=== PATIENT | female | born 1930 | race African-American/Black ===

== ENCOUNTER 2017-01-18 09:00 | Inpatient (IN) ==
[2017-01-18] MEDS ORDERED: DEXTROSE 50% 25 GM/50 ML VIAL IV PRN (09:42)
--- NOTE | 2017-01-18 09:42 | Cardiothoracic History & Phys ---
History of Present Illness Chief complaint: Shortness of breath History of present illness: Ms. Freitas is a 86 year old female who presented to [facility] with symptoms of increasing shortness of breath. She underwent evaluation by cardiology and cardiac catheterization and echocardiogram were recommended and performed. Cardiac echo suggested severe aortic stenosis and this was confirmed by cardiac catheterization which also showed essentially normal coronary arteries. Patient is referred for aortic valve replacement. Past medical history: Patient has hypertension hyperlipidemia type 2 diabetes and anemia. Past surgical history is negative patient is allergic to penicillin the family history is notable because of heart disease and a grand father. Patient is a non-smoker and nondrinker and review of systems is negative as far as the present illness is concerned. Physical examination patient is a well-developed well-nourished - [place] female in no acute distress. Termination of head eyes ears nose and throat show the pupils are equal and react to light and extraocular motions are intact. Oropharynx is benign. Examination of the neck showed bilateral transmitted bruits but there are no masses and there is no thyromegaly. Examination of the chest is clear to percussion and auscultation. Examination the heart shows a regular sinus rhythm and there is a loud systolic murmur heard best along left sternal border radiating to the neck. Examination of the abdomen shows no masses or organomegaly and there is no tenderness. Examination extremities shows no cyanosis or edema. Neurological examination is grossly within normal limits. Assessment: Aortic stenosis. Plan: Aortic valve replacement.
[2017-01-19] MEDS ORDERED: DEXTROSE 50% 25 GM/50 ML VIAL IV PRN (18:12)
[2017-01-19] MEDS ORDERED: GLUCAGON 1 MG VIAL IM PRN (18:41)
[2017-01-19] MEDS: BUMETANIDE 1 MG TABLET PO SCH (18:49)
[2017-01-19 18:51] LABS: Albumin 2.8 G/DL (3.4-5.0); Bilirubin,Total 0.7 MG/DL (0.2-1.0); Calcium 8.8 MG/DL (8.5-10.1); Osmolality,Calculated 290.8 MOS/KG (273-304); Potassium 4.4 MMOL/L (3.5-5.1); Total Protein 6.1 G/DL (6.4-8.3)
[2017-01-19] MEDS: CHLORHEXIDINE 0.12% ORAL RINSE 60 ML BOTTLE SWISH/SPIT SCH (20:51)
--- NOTE | 2017-01-19 23:04 | XRay Report ---
Exam: XR chest 2V Indication: Coronary artery disease Comparison study: None Findings: Cardiac silhouette is mildly enlarged. Mediastinal contours appear within normal limits. There is perihilar interstitial prominence, which is nonspecific but may represent underlying scarring. There is no focal consolidation or pleural effusion. Impression: Probable interstitial scarring and perihilar atelectasis. No definite focal consolidation. Mild cardiomegaly is suggested. PROCEDURE INTERPRETED AT [facility] DEPARTMENT OF RADIOLOGY Final Report Signed by: Lavelle López
[2017-01-20] MEDS: CHLORHEXIDINE 0.12% ORAL RINSE 60 ML BOTTLE SWISH/SPIT SCH ×2 (08:42→20:28)
[2017-01-20] MEDS: BUMETANIDE 1 MG TABLET PO SCH ×2 (08:43→15:55)
[2017-01-20] MEDS: DILTIAZEM CD 240 MG CAPSULE PO SCH (08:43)
[2017-01-20] MEDS: CHLORHEXIDINE 4% SOLN 118 ML BOTTLE TOP SCH ×2 (08:44→20:29)
--- NOTE | 2017-01-20 09:20 | Cardiothoracic Progress Note ---
Cardiothoracic Subjective Interval history: Patient is pain-free and in good spirits and ready for aortic valve replacement in the morning. Exam (Progress Note) - Constitutional Vitals: Period Temp Pulse Resp BP Sys/Link Pulse Ox Last 24 Hr 96 F-100 F 74-83 16-20 135-186/61-102 96-97 Result/EKG - Labs CBC & BMP: 01/19/17 17:56 Labs: Laboratory Results - last 24 hr 01/19/17 01/20/17 01/20/17 17:56 04:51 Unknown Sodium 144 Potassium 4.4 Chloride 111 H Carbon Dioxide 26 Anion Gap 11.4 BUN 21 H Creatinine 1.60 H GFR Calculation 38 BUN/Creatinine Ratio 13.00 Glucose 142 H Calculated Osmolality 290.8 Calcium 8.8 Total Bilirubin 0.70 AST 21 ALT 21 Alkaline Phosphatase 74 Total Protein 6.1 L Albumin 2.8 L Globulin 3.3 Albumin/Globulin Ratio 0.8 L Blood Type O POSITIVE O POSITIVE Antibody Screen Negative Crossmatch See Detail Quality Measures - VTE Contraindication to Pharmacological VTE Prophylaxis: High Risk of Bleeding
[2017-01-20] MEDS ORDERED: CEFUROXIME INJ 1,500 MG in SODIUM CHLORIDE 0.9% 100 ML IV ONE (09:42)
--- NOTE | 2017-01-20 11:29 | Hospitalist Consult Note ---
Assessment and Plan (1) DM2 (diabetes mellitus, type 2) Status: Chronic Assessment and plan: The patient is admitted to the hospital for aortic valve replacement. The patient has diabetes mellitus type 2 well controlled on metformin. Metformin will be held now and the patient will be treated in the postoperative phase with insulin infusion and then insulin subcutaneously once she is extubated. Current Visit: Yes Qualifiers: Diabetes mellitus complication status: with kidney complications Diabetes mellitus complication detail: with chronic kidney disease Chronic kidney disease stage: stage 3 (moderate) (2) CKD (chronic kidney disease) stage 3, GFR 30-59 ml/min Status: Chronic Current Visit: Yes (3) Aortic stenosis Status: Chronic Current Visit: Yes Qualifiers: Cardiac valve disease etiology: etiology unspecified Qualified Code(s): I35.0 - Nonrheumatic aortic (valve) stenosis History of Present Illness - Data of Consult Patient: new to practice Consult date: 01/20/17 Requesting Physician: Jon Reyna - Consult Narrative Reason for consult: Diabetes management History of present illness: Ms. Freitas is a 86 year old female who has transferred from [facility] for aortic valve replacement to be performed tomorrow by Dr. Reyna. The patient has diabetes mellitus type 2 and good control on metformin. Metformin is currently being held for preoperative status and fasting blood sugar was 124. CC: Jon Reyna MD - Home Medications and Allergies Home Medications: Home Medications Medication Instructions Recorded Confirmed Type Atorvastatin [Lipitor] 20 mg PO DAILY 01/19/17 01/19/17 History Bumetanide 2 mg PO DAILY 01/19/17 01/19/17 History Ferrous Sulfate 1 tablet PO DAILY 01/19/17 01/19/17 History dilTIAZem HCl [Cartia XT] 240 mg PO DAILY 01/19/17 01/19/17 History metFORMIN [Glucophage] 500 mg PO BID W/MEALS 01/19/17 01/19/17 History Allergies/Adverse Reactions: Allergies Allergy/AdvReac Type Severity Reaction Status Date / Time Penicillins Allergy Severe Difficulty Verified 01/19/17 17:47 Breathing Medical,Surgical,& Family Hx - Medical History Cardio: History of: Valvular Heart Disease HEENT: History of: Dental Problems (6 TEETH EXTRACTED 01/18/17) Endocrine: History of: Diabetes Mellitus (NIDDM), Dyslipidemia Respiratory: No history of: Respiratory Problems Musculoskeletal: No history of: Amputation Hematology: History of: Anemia - Surgical History Cardiac Surgeries: Sugical HX of: Cardiac Catheterization Thoracic Surgeries: Patient denies;: Organ Transplant, Lobectomy Neurologic Surgeries: Patient denies: Neurologic Surgery Abdominal Surgeries: Patient denies: Abdominal Surgery - Social History Smoking Status: Never smoker Frequency of Alcohol Use: None Type of Drug Use: None Marital Status: Single Lives With:: Children Functional capacity: independent ambulation 12 point system: reviewed and no additional remarkable complaints except as stated Exam - Constitutional Vitals: Period Temp Pulse Resp BP Sys/Link Pulse Ox Last 24 Hr 96 F-100 F 71-83 16-20 126-186/58-102 96-98 Exam: Constitutional System: No distress. No tremulousness. Head: Normocephalic, atraumatic. Ears, Nose and Throat System: No evidence of Otitis or Mastoiditis. No epistaxis or discharge Eyes System: Pupils equal, round, and reactive. Extraocular muscles intact. Neck: Supple, without adenopathy, No jugular venous distention. No thyromegaly , neck mass, or prior surgery apparent. Respiratory System: Chest clear to auscultation. Cardiovascular System: Heart with regular rate and rhythm. Systolic murmur. GI System: Abdomen soft, nontender. Normo active bowel sounds present. Musculoskeletal System: limbs with trace pedal edema. Full distal pulses. Neurological System: No discernable sensory deficit. No aphasia Psychiatric System: Conversation is rational Results - Labs CBC & BMP: 01/19/17 17:56 Lab Results: I have reviewed the past 24 hour labs Quality Measures - VTE Contraindication to Pharmacological VTE Prophylaxis: High Risk of Bleeding
[2017-01-20] MEDS ORDERED: oxyCODONE/ACETAMINOPHEN 5-325 MG TABLET PO PRN (15:35)
[2017-01-20] MEDS: ACETAMINOPHEN 325 MG TABLET PO PRN ×2 (15:56→22:43)
[2017-01-21 02:45] LABS: ABG HCO3 25.6 MMOL/L (20-26); ABG Oxygen Saturation 96.2 % (95-100); ABG PO2 86.9 MM HG (80-95); ABG TCO2 26.7 MMOL/L (23-27); Allen Test Positive; Pt O2 Delivery Device Room Air
[2017-01-21] MEDS ORDERED: VANCOMYCIN 1,000 MG VIAL ONE (04:34)
[2017-01-21] MEDS: CHLORHEXIDINE 4% SOLN 118 ML BOTTLE TOP SCH (05:15)
[2017-01-21] MEDS ORDERED: LORazepam 1 MG TABLET PO ONE (05:30)
[2017-01-21] MEDS ORDERED: VANCOMYCIN INJ 1,000 MG in SODIUM CHLORIDE 0.9% 250 ML IV ONE (05:30)
[2017-01-21] MEDS ORDERED: FAMOTIDINE 20 MG TABLET PO ONE (05:30)
[2017-01-21] MEDS ORDERED: SODIUM CHLORIDE 0.9% 1,000 ML IV SCH (06:00)
[2017-01-21] MEDS ORDERED: VECURONIUM 10 MG VIAL IV ONE (06:48)
[2017-01-21] MEDS ORDERED: AMINOCAPROIC ACID 5,000 MG/20 ML VIAL IV ONE (06:48)
[2017-01-21] MEDS ORDERED: HEPARIN/NACL 0.9% 2 UNITS/ML 500 ML IV ONE ×2 (06:48→10:42)
[2017-01-21] MEDS ORDERED: LIDOCAINE 2% 5 ML VIAL ONE (06:48)
[2017-01-21] MEDS ORDERED: NITROGLYCERIN 50 MG/250 ML BOTTLE IV ONE (06:48)
[2017-01-21] MEDS ORDERED: PHENYLEPHRINE 20 MG/250 ML PREMIX IV ONE (06:48)
[2017-01-21 07:31] LABS: ABG Base Excess -0.5 MMOL/L (-2.5-2.5); ABG HCO3 24.1 MMOL/L (20-26); ABG PH 7.504 (7.35-7.45); ABG TCO2 20.5 MMOL/L (23-27); Glucose Heart Surgery 128 MG/DL (74-106); Hematocrit Heart Surgery 25.2 PERCENT (37-47); Hemoglobin Heart Surgery 8.1 G/DL (12.0-16.0); Ionized Calcium Arterial 1.18 MMOL/L (1.21-1.46); PH Patient Temp Arterial 7.504; Patient Temperature 37 CELCIUS; Potassium Heart/CVR 3.8 MMOL/L (3.5-5.1); Sodium Heart/CVR 142 MMOL/L (135-145)
[2017-01-21] MEDS ORDERED: NITROPRUSSIDE 50 MG/2 ML VIAL ONE (08:07)
[2017-01-21] MEDS ORDERED: PHENYLEPHRINE DRIP 40 MG/250 ML PREMIX IV ONE (08:07)
[2017-01-21] MEDS ORDERED: POTASSIUM CHLORIDE RIDER 100 ML IV ONE (08:07)
[2017-01-21] MEDS ORDERED: CALCIUM CHLORIDE 1,000 MG/10 ML SYRINGE IV ONE (08:07)
[2017-01-21 08:08] LABS: Apearance,Urine Slightly Hazy (Clear); Bacteria,Urine Few /HPF (Few); Bilirubin,Urine Negative (Negative); Blood, Urine Moderate mg/dL (Negative); Glucose,Urine (UA) Negative (Negative); Ketones,Urine Negative (Negative); Mucus,Urine Occasional /LPF (Occasional); Nitrite,Urine Positive (Negative); Protein,Urine Negative; RBC,Urine 4 /HPF (0-4); Squamous Epithelial Cell,Urine Occasional /HPF (0-10); Urine Color Yellow (Yellow); Urine Urobilinogen < 2.0 EU/DL (0.2-1.0); WBC,Urine 29 /HPF (0-6)
[2017-01-21 08:17] LABS: VBG Base Excess -1.5 MEQ/L (0-4); VBG Oxygen Saturation 85.6 %; VBG PCO2 36.2 MMHG (41-51); VBG PH 7.409; VBG PO2 50.5 MMHG (17-40)
[2017-01-21 08:41] LABS: Potassium Heart/CVR 4.2 MMOL/L (3.5-5.1); VBG Base Excess -1.5 MEQ/L (0-4); VBG Oxygen Saturation 85.6 %; VBG PCO2 36.2 MMHG (41-51); VBG PH 7.409; VBG PO2 50.5 MMHG (17-40)
[2017-01-21 08:42] LABS: Hematocrit Heart Surgery 21.7 PERCENT (37-47); Hemoglobin Heart Surgery 6.9 G/DL (12.0-16.0); PCO2 Patient Temp Venous 32.8 MM HG; PH Patient Temp Venous 7.438; PO2 Patient Temp Venous 44.4 MM HG
[2017-01-21 08:45] LABS: Hematocrit Heart Surgery 21.6 PERCENT (37-47); Hemoglobin Heart Surgery 6.9 G/DL (12.0-16.0); PCO2 Patient Temp Venous 28.3 MM HG; PH Patient Temp Venous 7.514; PO2 Patient Temp Venous 33.8 MM HG; Potassium Heart/CVR 4.2 MMOL/L (3.5-5.1); VBG Base Excess 0.4 MEQ/L (0-4); VBG HCO3 24.6 MEQ/L (24-28); VBG Oxygen Saturation 82.2 %; VBG PCO2 34.4 MMHG (41-51); VBG PH 7.454; VBG PO2 44.6 MMHG (17-40)
[2017-01-21] MEDS ORDERED: ATORVASTATIN 20 MG TABLET PO SCH (09:00)
[2017-01-21] MEDS ORDERED: INSULIN REGULAR DRIP 100 ML IV ONE (09:24)
[2017-01-21] MEDS ORDERED: LIDOCAINE 100 MG/5 ML SYRINGE ONE (09:24)
[2017-01-21] MEDS ORDERED: EPINEPHrine 1 MG/10 ML SYRINGE ONE (09:24)
[2017-01-21] MEDS ORDERED: PHENYLEPHRINE DRIP 20 MG/250 ML PREMIX IV ONE (09:36)
[2017-01-21] MEDS ORDERED: DEXTROSE 5% KCL 20 MEQ 40 MEQ/2,000 ML BAG IV ONE (09:36)
[2017-01-21] MEDS ORDERED: PROTAMINE SULFATE 250 MG/25 ML VIAL IV ONE (09:37)
[2017-01-21] MEDS ORDERED: SODIUM BICARBONATE 50 MEQ/50 ML SYRINGE IV ONE (09:37)
[2017-01-21] MEDS ORDERED: ALBUMIN 25% 25 GM/100 ML VIAL IV ONE (09:37)
[2017-01-21] MEDS ORDERED: MAGNESIUM SULFATE 1 GM/2 ML VIAL ONE (09:38)
[2017-01-21] MEDS ORDERED: MANNITOL 12.5 GM/50 ML VIAL IV ONE (09:38)
[2017-01-21] MEDS ORDERED: methylPREDNISolone SOD SUC 1,000 MG/8 ML VIAL ONE (09:38)
[2017-01-21] MEDS ORDERED: FUROSEMIDE 20 MG/2 ML VIAL ONE (09:38)
[2017-01-21] MEDS ORDERED: HEPARIN 10,000 UNIT/10 ML VIAL ONE (09:38)
[2017-01-21 09:47] LABS: ABG Base Excess -2.7 MMOL/L (-2.5-2.5); ABG HCO3 22.1 MMOL/L (20-26); ABG PCO2 33.6 MM HG (35-48); ABG PH 7.411 (7.35-7.45); ABG TCO2 19.9 MMOL/L (23-27); Glucose Heart Surgery 221 MG/DL (74-106); Hematocrit Heart Surgery 25.1 PERCENT (37-47); Hemoglobin Heart Surgery 8.1 G/DL (12.0-16.0); Ionized Calcium Arterial 1.14 MMOL/L (1.21-1.46); PCO2 Patient Temp Arterial 33.6 MMHG; PH Patient Temp Arterial 7.411; Patient Temperature 37 CELCIUS; Potassium Heart/CVR 3.9 MMOL/L (3.5-5.1); Sodium Heart/CVR 138 MMOL/L (135-145)
[2017-01-21] MEDS ORDERED: ONDANSETRON 4 MG/2 ML VIAL IV PRN (10:20)
[2017-01-21] MEDS ORDERED: POTASSIUM CHLORIDE RIDER 10 MEQ in PREMIX 1 EACH IV PRN (10:20)
[2017-01-21] MEDS ORDERED: INSULIN REGULAR 100 UNIT/ML IV ONE (10:20)
[2017-01-21] MEDS ORDERED: LACTATED RINGERS 250 ML IV PRN (10:20)
[2017-01-21] MEDS ORDERED: ACETAMINOPHEN 650 MG SUPP RECTAL PRN (10:20)
[2017-01-21] MEDS ORDERED: VECURONIUM 10 MG VIAL IV PRN ×2 (10:20)
[2017-01-21] MEDS ORDERED: MORPHINE 10 MG/1 ML VIAL IV PRN (10:20)
[2017-01-21] MEDS ORDERED: PHENYLEPHRINE DRIP 40 MG/250 ML PREMIX IV PRN (10:20)
[2017-01-21] MEDS ORDERED: MIDAZOLAM 10 MG/2 ML VIAL IV PRN (10:20)
[2017-01-21] MEDS ORDERED: NITROPRUSSIDE 100 MG in DEXTROSE 5% 250 ML IV PRN (10:20)
[2017-01-21] MEDS ORDERED: CALCIUM CHLORIDE 1,000 MG/10 ML SYRINGE IV PRN (10:20)
[2017-01-21] MEDS ORDERED: MAGNESIUM SULF RIDER 4 GM in PREMIX 1 EACH IV PRN (10:20)
[2017-01-21] MEDS ORDERED: MORPHINE 2 MG/1 ML SYRINGE IV PRN (10:20)
[2017-01-21] MEDS ORDERED: INSULIN REGULAR 100 UNIT/ML IV PRN (10:20)
[2017-01-21] MEDS ORDERED: DEXTROSE 50% 25 GM/50 ML VIAL IV PRN ×2 (10:20)
--- NOTE | 2017-01-21 10:26 | Operative Note ---
Date of procedure: 01/21/17 Pre-op diagnosis: Aortic stenosis Post-op diagnosis: same Procedure: Procedure: Aortic valve replacement with a 19 mm pericardial prosthesis. Findings: Patient is an 86-year-old lady who presented to [facility] with symptoms of increasing shortness of breath. Cardiac catheterization and echocardiogram both revealed evidence of severe aortic stenosis and the patient was referred for aortic valve replacement. At the time of surgery left ventricular function was noted to be normal and a severely calcified aortic valve was removed and replaced with a 19 mm pericardial prosthesis. Patient tolerated the procedure well and was returned to recovery in satisfactory condition. Procedure: Patient brought to the operating room placed on the operating table in the supine position. After satisfactory induction of general anesthesia the chest abdomen and legs were prepped and draped in sterile fashion. A sternotomy incision was made and the sternum was divided and the heart suspended in a pericardial cradle. Patient was prepared for cardiopulmonary bypass with systemic heparinization and cannulation of the ascending aorta and right atrium. Cardiopulmonary bypass was begun and the aorta was crossclamped and the heart arrested with cardioplegia solution injected into the aortic root. Heart was protected during period of crossclamping with topical saline slush. The aorta was opened with a transverse aortotomy in the aortic valve was inspected and was found to be severely stenotic and calcified. The [place] aortic valve was removed and the aortic annulus rimmed with horizontal mattress sutures of 3-0 Ethibond. These were passed through the sewing ring of a 19 mm pericardial prosthesis which was lowered and tied into place. The aorta was closed with 3-0 Prolene. The heart was de-aired and and the aortic cross-clamp was removed reestablishing cardiac action. Patient was gradually weaned from cardiopulmonary bypass without difficulty and heparin effect reversed with protamine and decannulation carried out in the usual fashion. Defects in the ascending aorta and right atrium closed with 3-0 Prolene. The operative field was inspected for hemostasis and this was considered adequate the incision was closed with interrupted stainless steel wire and the sternum and 0 Monopril in the presternal fascia. The skin was closed with running subcuticular Monocryl. 2 chest tubes were left in the anterior mediastinum and brought out through separate stab incisions. Sterile dressings were applied the patient was returned to recovery in satisfactory condition. Anesthesia: GETA Surgeon / Physician: Jon Reyna Estimated blood loss: other (Unable to determine because of cardiopulmonary bypass) Condition: stable Disposition: ICU Results - Labs CBC & BMP: 01/21/17 09:41 01/19/17 17:56 Discharge Plan - Discharge Medications No Action Ferrous Sulfate 1 tablet PO DAILY dilTIAZem HCl [Cartia XT] 240 mg PO DAILY Bumetanide 2 mg PO DAILY Atorvastatin [Lipitor] 20 mg PO DAILY metFORMIN [Glucophage] 500 mg PO BID W/MEALS - Follow Up or Referral - Forms/Instructions
[2017-01-21] MEDS ORDERED: PROTAMINE SULFATE 50 MG/5 ML VIAL IV ONE ×2 (10:28→10:30)
[2017-01-21] MEDS: LACTATED RINGERS 1,000 ML IV PRN ×3 (10:30→15:43)
[2017-01-21] MEDS: SODIUM CHLORIDE 0.45% 1,000 ML IV SCH ×2 (10:30→11:58)
[2017-01-21] MEDS ORDERED: ePHEDrine 50 MG/ML AMP ONE (10:34)
[2017-01-21] MEDS ORDERED: MIDAZOLAM 10 MG/2 ML VIAL ONE (10:34)
[2017-01-21] MEDS ORDERED: SUFentanil 250 MCG/5 ML AMP ONE (10:34)
[2017-01-21 10:46] LABS: ABG Base Excess -3.3 MMOL/L (-2.5-2.5); ABG HCO3 21.7 MMOL/L (20-26); ABG PCO2 28.1 MM HG (35-48); ABG PH 7.454 (7.35-7.45); ABG TCO2 18.1 MMOL/L (23-27); Eosinophils # 0.1 10*3/uL (0.0-0.87); Eosinophils % 0.8 % (0.00-10.9); Glucose Heart Surgery 158 MG/DL (74-106); Hematocrit 26.3 VOL% (35.7-47.0); Hematocrit Heart Surgery 28.3 PERCENT (37-47); Hemoglobin 8.8 GM/DL (12.0-16.0); Hemoglobin Heart Surgery 9.1 G/DL (12.0-16.0); Immature Granulocytes % 0.5 %; Immature Granulocytes Absolute 0.03 #; Lymphocytes # 1.1 10*3/uL (1.4-4.0); Lymphocytes % 17.7 % (21.3-54.2); Mean Corpuscular HGB Conc 33.5 GM/DL (32-36); Mean Corpuscular Hemoglobin 30 PG (27-34); Mean Corpuscular Volume 89.2 FL (87-102); Mean Platelet Volume 10.6 FL (9.6-12.0); Monocytes # 0.4 10*3/uL (0.11-0.8); Monocytes % 6.7 % (1.7-12.7); Neutrophils # 4.6 10*3/uL (1.4-7.4); Neutrophils % 74.3 % (38.7-73.9); Platelet Count 91 T/CUMM (130-400); Potassium Heart/CVR 3.7 MMOL/L (3.5-5.1); Red Blood Count 2.95 MC/CUMM (3.8-5.5); Red Cell Distribution Width 15.9 % (9.3-17.3); White Blood Count 6.2 T/CUMM (4-12)
[2017-01-21 11:04] LABS: INR 1.5; PT Patient Result 16.7 SECS; Partial Thromboplastin Time 32.9 SECS (0-40)
[2017-01-21] MEDS: POTASSIUM CHLORIDE RIDER 20 MEQ in PREMIX 1 EACH IV PRN ×5 (11:30→23:53)
[2017-01-21 11:37] LABS: CKMB % 7.8 %
[2017-01-21 11:38] LABS: Troponin I Only 4.89 NG/ML (0.00-0.045)
[2017-01-21 11:39] LABS: Albumin 2.4 G/DL (3.4-5.0); Bilirubin,Total 0.9 MG/DL (0.2-1.0); Magnesium 1.6 MG/DL (1.8-2.4); Osmolality,Calculated 292.8 MOS/KG (273-304); Potassium 3.9 MMOL/L (3.5-5.1); Total Protein 4.7 G/DL (6.4-8.3)
--- NOTE | 2017-01-21 11:46 | XRay Report ---
History: Postop thoracotomy. Line placement Date: 01/21/2017 Study: Chest x-ray AP portable Comparison exam: January 19, 2017 The endotracheal tube, nasogastric tube, and chest drainage tubes are in generally satisfactory position. A right IJ central line is positioned with its tip over the superior vena cava. A right subclavian Orchard-Anirudh catheter is positioned with its tip over the proximal descending right pulmonary artery. There is no pneumothorax. There is stable cardiomegaly. The mediastinal contours are generally unchanged. The pulmonary vasculature is not grossly engorged. There is some mild strandy atelectatic change in the lower lungs, increased. There is mild left pleural effusion. The osseous structures are similar. Impression: Satisfactory positioning of supporting tubes. No evidence of a pneumothorax. Mild postoperative bibasilar atelectasis. Otherwise stable exam PROCEDURE INTERPRETED AT [facility] DEPARTMENT OF RADIOLOGY Final Report Signed by: Dr. Stephenie Anderson
[2017-01-21] MEDS: INSULIN REGULAR DRIP 100 ML IV SCH (11:50)
[2017-01-21] MEDS: ALBUMIN 5% 12.5 GM in PREMIX 1 EACH IV PRN ×4 (12:00→18:06)
[2017-01-21] MEDS: KETOROLAC 30 MG/1 ML VIAL IV SCH ×3 (12:07→21:57)
[2017-01-21 12:33] LABS: ABG HCO3 19.1 MMOL/L (20-26); ABG Oxygen Saturation 98.9 % (95-100); ABG PCO2 25.3 MM HG (35-48); ABG PH 7.496 (7.35-7.45); ABG PO2 236.3 MM HG (80-95); ABG TCO2 19.9 MMOL/L (23-27); Glucose Heart Surgery 141 MG/DL (74-106); Hemoglobin Heart Surgery 10.6 G/DL (12.0-16.0); Potassium Heart/CVR 3.8 MMOL/L (3.5-5.1)
[2017-01-21 12:46] LABS: Hypochromasia 1+; Macrocytosis 1+
--- NOTE | 2017-01-21 13:36 | Hospitalist Progress Note ---
Assessment and Plan (1) DM2 (diabetes mellitus, type 2) Status: Chronic Assessment and plan: The patient is postop from aortic valve replacement. The patient has diabetes mellitus type 2 and the patient will be treated in the postoperative phase with insulin infusion and then insulin subcutaneously once she is extubated. Current Visit: Yes Qualifiers: Diabetes mellitus complication status: with kidney complications Diabetes mellitus complication detail: with chronic kidney disease Chronic kidney disease stage: stage 3 (moderate) (2) CKD (chronic kidney disease) stage 3, GFR 30-59 ml/min Status: Chronic Current Visit: Yes (3) Aortic stenosis Status: Chronic Current Visit: Yes Qualifiers: Cardiac valve disease etiology: etiology unspecified Qualified Code(s): I35.0 - Nonrheumatic aortic (valve) stenosis Hospitalist: Subjective Interval history: The patient had successful aortic valve surgery today. The patient's blood sugar is now 140 and insulin infusion is in progress. I coordinated care with the patient's nurse Ciera Devi Exam - Constitutional Vitals: Period Temp Pulse Resp BP Sys/Link Pulse Ox Last 24 Hr 96.7 F-99.3 F 63-77 10-20 111-187/49-76 96-100 Exam: Constitutional System: The patient is orally intubated and mechanically ventilated. Head: Normocephalic, atraumatic. Ears, Nose and Throat System: No evidence of Otitis or Mastoiditis. No epistaxis or discharge Eyes System: Pupils equal, round, and reactive. Extraocular muscles intact. Neck: Supple, without adenopathy, No jugular venous distention. No thyromegaly , neck mass, or prior surgery apparent. Respiratory System: Chest clear to auscultation. Results - Labs CBC & BMP: 01/21/17 10:40 01/21/17 10:40 Lab Results: I have reviewed the past 24 hour labs Quality Measures - VTE Contraindication to Pharmacological VTE Prophylaxis: High Risk of Bleeding
[2017-01-21] MEDS: MAGNESIUM SULF RIDER 2 GM in PREMIX 1 EACH IV PRN (14:39)
[2017-01-21 15:02] LABS: ABG Base Excess -2.4 MMOL/L (-2.5-2.5); ABG HCO3 22.4 MMOL/L (20-26); ABG Oxygen Saturation 99.6 % (95-100); ABG PCO2 31.4 MM HG (35-48); ABG PH 7.436 (7.35-7.45); ABG TCO2 19.3 MMOL/L (23-27); Glucose Heart Surgery 105 MG/DL (74-106); Hematocrit Heart Surgery 29.1 PERCENT (37-47); Hemoglobin Heart Surgery 9.4 G/DL (12.0-16.0); Potassium Heart/CVR 4.6 MMOL/L (3.5-5.1)
--- NOTE | 2017-01-21 15:51 | Anesthesia Procedures ---
Anesthesia Procedures - Central Venous Insert Monitors Applied: pulse oximetry, EKG, BP cuff, oxygen via MSBT: pulse oximetry, EKG, BP cuff, oxygen via Procedure: after sterile technique was performed as outlined above, , ultrasound guidance was used to identify vessel, 18G introducer needle was passed into vessel under direct visualizatio, 7fr double lumen catheter was passed over guidewire without difficulty, triple lumen catheter was passed over guidewire without difficulty, catheter sutured into place and the ports flushed with NS/hepflush, sterlie dressing applied including the antibiotic disc, vital signs were stable throughout procedure, no apparent complications were noted, CXR to be obtained and read Ultrasound used: identify patency vessel Vein Cannulated: right internal juglar
--- NOTE | 2017-01-21 15:52 | Anesthesia Procedures ---
Anesthesia Procedures - Arterial Line Time out performed arterial line: Yes Size (Gauge): 20 Technique used arterial line: guide wire technique Post-Procedure: line sutured into place, dry sterile dressing placed Patient tolerated procedure arterial line: well Complications art line: none Site: right
[2017-01-21 17:22] LABS: ABG Base Excess -2.6 MMOL/L (-2.5-2.5); ABG HCO3 22.3 MMOL/L (20-26); ABG Oxygen Saturation 99.6 % (95-100); ABG PCO2 31.7 MM HG (35-48); ABG PH 7.428 (7.35-7.45); ABG TCO2 18.8 MMOL/L (23-27); Glucose Heart Surgery 148 MG/DL (74-106); Hematocrit Heart Surgery 32.8 PERCENT (37-47); Hemoglobin Heart Surgery 10.6 G/DL (12.0-16.0); Potassium Heart/CVR 4.4 MMOL/L (3.5-5.1)
[2017-01-21] MEDS ORDERED: FUROSEMIDE 40 MG/4 ML VIAL IV ONE (17:35)
[2017-01-21] MEDS: DOBUTamine 500 MG/250 ML PREMIX IV SCH (18:05)
[2017-01-21] MEDS ORDERED: NITROGLYCERIN DRIP 50 MG/250 ML BOTTLE IV ONE (18:40)
[2017-01-21] MEDS: NITROGLYCERIN DRIP 50 MG/250 ML BOTTLE IV SCH (19:08)
[2017-01-21 19:55] LABS: CKMB % 4.9 %
[2017-01-21 20:03] LABS: Troponin I Only 5.57 NG/ML (0.00-0.045)
[2017-01-21 20:35] LABS: ABG Base Excess -3.2 MMOL/L (-2.5-2.5); ABG HCO3 21.7 MMOL/L (20-26); ABG Oxygen Saturation 98.9 % (95-100); ABG PCO2 32.9 MM HG (35-48); ABG PH 7.407 (7.35-7.45); ABG TCO2 18.7 MMOL/L (23-27); Glucose Heart Surgery 138 MG/DL (74-106); Hematocrit Heart Surgery 32.2 PERCENT (37-47); Hemoglobin Heart Surgery 10.4 G/DL (12.0-16.0); Potassium Heart/CVR 4.1 MMOL/L (3.5-5.1)
[2017-01-21] MEDS: CHLORHEXIDINE 0.12% ORAL RINSE 60 ML BOTTLE SWISH/SPIT SCH ×2 (21:20→22:17)
[2017-01-21] MEDS: VANCOMYCIN INJ 1,000 MG in SODIUM CHLORIDE 0.9% 250 ML IV SCH (22:05)
[2017-01-21] MEDS: BUMETANIDE 1 MG TABLET PO SCH (22:16)
[2017-01-21] MEDS: DILTIAZEM CD 240 MG CAPSULE PO SCH (22:17)
[2017-01-21 23:36] LABS: ABG Base Excess -3.3 MMOL/L (-2.5-2.5); ABG HCO3 21.7 MMOL/L (20-26); ABG Oxygen Saturation 99.1 % (95-100); ABG PCO2 38.2 MM HG (35-48); ABG PH 7.363 (7.35-7.45); ABG TCO2 19.8 MMOL/L (23-27); Glucose Heart Surgery 128 MG/DL (74-106); Potassium Heart/CVR 4.2 MMOL/L (3.5-5.1)
[2017-01-22] MEDS: MIDAZOLAM 2 MG/2 ML VIAL IV PRN ×3 (02:35→07:35)
[2017-01-22 03:39] LABS: ABG HCO3 21.9 MMOL/L (20-26); ABG Oxygen Saturation 99.1 % (95-100); ABG PCO2 38.4 MM HG (35-48); ABG PH 7.366 (7.35-7.45); Basophils % 0.1 % (0.0-0.8); Glucose Heart Surgery 127 MG/DL (74-106); Hematocrit 30.2 VOL% (35.7-47.0); Hematocrit Heart Surgery 30.8 PERCENT (37-47); Hemoglobin 9.7 GM/DL (12.0-16.0); Immature Granulocytes % 0.4 %; Immature Granulocytes Absolute 0.05 #; Lymphocytes # 0.5 10*3/uL (1.4-4.0); Lymphocytes % 4.3 % (21.3-54.2); Mean Corpuscular HGB Conc 32.1 GM/DL (32-36); Mean Corpuscular Hemoglobin 29 PG (27-34); Mean Corpuscular Volume 89.9 FL (87-102); Monocytes # 0.5 10*3/uL (0.11-0.8); Monocytes % 4.1 % (1.7-12.7); Neutrophils # 10.2 10*3/uL (1.4-7.4); Neutrophils % 91.1 % (38.7-73.9); Potassium Heart/CVR 4.4 MMOL/L (3.5-5.1); Red Blood Count 3.36 MC/CUMM (3.8-5.5); Red Cell Distribution Width 16.3 % (9.3-17.3); White Blood Count 11.2 T/CUMM (4-12)
[2017-01-22 03:47] LABS: Platelet Count 83 T/CUMM (130-400)
[2017-01-22] MEDS: POTASSIUM CHLORIDE RIDER 20 MEQ in PREMIX 1 EACH IV PRN ×2 (03:54→09:34)
[2017-01-22] MEDS: KETOROLAC 30 MG/1 ML VIAL IV SCH ×3 (03:55→15:49)
[2017-01-22 04:26] LABS: CKMB % 3.8 %
[2017-01-22 04:27] LABS: Troponin I Only 3.21 NG/ML (0.00-0.045)
[2017-01-22 04:36] LABS: Albumin 3.5 G/DL (3.4-5.0); Bilirubin,Direct 0.3 MG/DL (0.0-0.20); Calcium 8.3 MG/DL (8.5-10.1); Magnesium 2.1 MG/DL (1.8-2.4); Osmolality,Calculated 290.8 MOS/KG (273-304); Potassium 4.5 MMOL/L (3.5-5.1); Total Protein 5.5 G/DL (6.4-8.3)
[2017-01-22 04:44] LABS: Band Neutrophils 1 % (0-10); Lymphocytes 7 % (20-55); Segmented Neutrophils 91 % (50-85); Total Cells Counted 100
[2017-01-22 04:45] LABS: Ovalocytes 1+; Platelet Estimate Decreased
[2017-01-22] MEDS ORDERED: FUROSEMIDE 40 MG/4 ML VIAL IV ONE ×2 (05:30→13:00)
[2017-01-22 06:21] LABS: ABG Base Excess -3.6 MMOL/L (-2.5-2.5); ABG HCO3 21.4 MMOL/L (20-26); ABG Oxygen Saturation 98.8 % (95-100); ABG PCO2 38.1 MM HG (35-48); ABG PH 7.359 (7.35-7.45); ABG TCO2 19.7 MMOL/L (23-27); Glucose Heart Surgery 124 MG/DL (74-106); Hematocrit Heart Surgery 30.4 PERCENT (37-47); Hemoglobin Heart Surgery 9.8 G/DL (12.0-16.0); Potassium Heart/CVR 4.9 MMOL/L (3.5-5.1)
--- NOTE | 2017-01-22 07:37 | EKG Report ---
Stationary ECG Study [facility] Test Date: 01/22/2017 7:36:28 AM Pat Name: CECILY DAVENPORT Department: Room: 104 Gender: F Neurologist: : [id number] Requested by: Jon Link Order Number: [id number] Sobeida MD: GREGORIO MATHEW Intervals [place] Rate: 86 P: 77 UT: 194 QRS: 26 QRSD: 90 T: 186 QT: 385 QTc: 429 Interpretive Statements SINUS RHYTHM Electronically Signed On 01-22-17 08:28:10 CDT by GREGORIO MATHEW [email or web address]
[2017-01-22 08:16] LABS: ABG Base Excess -3.5 MMOL/L (-2.5-2.5); ABG HCO3 21.5 MMOL/L (20-26); ABG Oxygen Saturation 99.1 % (95-100); ABG PCO2 38.8 MM HG (35-48); ABG PH 7.355 (7.35-7.45); ABG TCO2 19.9 MMOL/L (23-27); Glucose Heart Surgery 130 MG/DL (74-106); Hematocrit Heart Surgery 29.9 PERCENT (37-47); Hemoglobin Heart Surgery 9.7 G/DL (12.0-16.0); Potassium Heart/CVR 4.4 MMOL/L (3.5-5.1)
[2017-01-22] MEDS ORDERED: GLUCAGON 1 MG VIAL IM PRN (08:21)
[2017-01-22] MEDS ORDERED: DEXTROSE 50% 25 GM/50 ML VIAL IV PRN (08:21)
--- NOTE | 2017-01-22 08:21 | Cardiothoracic Progress Note ---
Cardiothoracic Subjective Interval history: Patient is awake and responsive and she remains intubated although she has been on CPAP for approximately 1 hour and looks comfortable. Blood gases on CPAP are excellent and we will proceed with extubation. Vital signs have been stable although she has been on the hypertensive side. Cardiac output is 5 L/ min. Chest tube drainage is minimal and her chest tubes have been discontinued. We will restart some of her home medications and get her out of bed but I think she needs to remain in intensive care at least for 24 hours. Overall her progress seems satisfactory. Exam (Progress Note) - Constitutional Vitals: Period Temp Pulse Resp BP Sys/Link Pulse Ox Last 24 Hr 96.7 F-99.1 F 60-90 8-19 99-187/44-76 99-100 Result/EKG - Labs CBC & BMP: 01/22/17 03:30 01/22/17 03:30 Labs: Laboratory Results - last 24 hr 01/20/17 01/21/17 01/21/17 04:51 08:14 08:39 WBC RBC Hgb Hct MCV MCH MCHC RDW Plt Count MPV Neut % (Auto) Lymph % (Auto) [place] % (Auto) Eos % (Auto) Baso % (Auto) Neut # (Auto) Lymph # (Auto) [place] # (Auto) Eos # (Auto) Baso # (Auto) Total Counted Immature Gran % Nucleated RBC % Immature Gran # Segmented Neutrophils Band Neutrophils Lymphocytes Monocytes Nucleated RBCs # Platelet Estimate Hypochromasia Macrocytosis Ovalocytes INR PT Patient/Control Mix Circ Anticoag PTT Patient Temperature 35 33 ABG pH ABG pH at Pt Temp 7.438 7.514 ABG pCO2 ABG pCO2 at Pt Temp 32.8 28.3 ABG pO2 ABG pO2 at Pt Temp 44.4 33.8 ABG HCO3 ABG Total CO2 ABG O2 Saturation ABG Base Excess ABG Sodium 135 135 VBG pH 7.409 7.454 VBG pCO2 36.2 L 34.4 L VBG pO2 50.5 H 44.6 H VBG HCO3 23.0 L 24.6 VBG Total CO2 21.7 22.8 VBG O2 Saturation 85.6 82.2 VBG Base Excess -1.5 L 0.4 Hemoglobin 6.9 L 6.9 L Hematocrit 21.7 L 21.6 L Potassium 4.2 4.2 Glucose 335 H 338 H Ionized Calcium FiO2 80.00 80.00 Sodium Chloride Carbon Dioxide Anion Gap BUN Creatinine GFR Calculation BUN/Creatinine Ratio Calculated Osmolality Calcium Venous Ioniz Calcium 1.04 1.05 L Magnesium Total Bilirubin Direct Bilirubin AST ALT Alkaline Phosphatase Total Creatine Kinase CK-MB (CK-2) CK and CKMB Interp Troponin I Total Protein Albumin Globulin Albumin/Globulin Ratio Blood Type O POSITIVE Antibody Screen Negative Crossmatch See Detail Blood Bank Comment 01/21/17 01/21/17 01/21/17 09:41 09:42 10:40 WBC 6.2 RBC 2.95 L Hgb 8.8 L Hct 26.3 L MCV 89.2 MCH 30 MCHC 33.5 RDW 15.9 Plt Count 70 L 91 L D MPV 10.6 Neut % (Auto) 74.3 H Lymph % (Auto) 17.7 L [place] % (Auto) 6.7 Eos % (Auto) 0.8 Baso % (Auto) 0.0 Neut # (Auto) 4.6 Lymph # (Auto) 1.1 L [place] # (Auto) 0.4 Eos # (Auto) 0.1 Baso # (Auto) 0.0 Total Counted Immature Gran % 0.5 Nucleated RBC % 0.0 Immature Gran # 0.03 Segmented Neutrophils Band Neutrophils Lymphocytes Monocytes Nucleated RBCs # 0.00 Platelet Estimate Hypochromasia 1+ Macrocytosis 1+ Ovalocytes INR PT Patient/Control Mix Circ Anticoag PTT Patient Temperature 37 ABG pH 7.411 ABG pH at Pt Temp 7.411 ABG pCO2 33.6 L ABG pCO2 at Pt Temp 33.6 ABG pO2 339.0 H ABG pO2 at Pt Temp 339.0 ABG HCO3 22.1 ABG Total CO2 19.9 L ABG O2 Saturation 100.0 ABG Base Excess -2.7 L ABG Sodium 138 VBG pH VBG pCO2 VBG pO2 VBG HCO3 VBG Total CO2 VBG O2 Saturation VBG Base Excess Hemoglobin 8.1 L Hematocrit 25.1 L Potassium 3.9 Glucose 221 H Ionized Calcium 1.14 L FiO2 Sodium Chloride Carbon Dioxide Anion Gap BUN Creatinine GFR Calculation BUN/Creatinine Ratio Calculated Osmolality Calcium Venous Ioniz Calcium Magnesium Total Bilirubin Direct Bilirubin AST ALT Alkaline Phosphatase Total Creatine Kinase CK-MB (CK-2) CK and CKMB Interp Troponin I Total Protein Albumin Globulin Albumin/Globulin Ratio Blood Type Antibody Screen Crossmatch Blood Bank Comment 01/21/17 01/21/17 01/21/17 10:40 10:40 10:40 WBC RBC Hgb Hct MCV MCH MCHC RDW Plt Count MPV Neut % (Auto) Lymph % (Auto) [place] % (Auto) Eos % (Auto) Baso % (Auto) Neut # (Auto) Lymph # (Auto) [place] # (Auto) Eos # (Auto) Baso # (Auto) Total Counted Immature Gran % Nucleated RBC % Immature Gran # Segmented Neutrophils Band Neutrophils Lymphocytes Monocytes Nucleated RBCs # Platelet Estimate Hypochromasia Macrocytosis Ovalocytes INR 1.5 PT Patient/Control Mix 16.7 Circ Anticoag PTT 32.9 Patient Temperature ABG pH 7.454 H ABG pH at Pt Temp ABG pCO2 28.1 L ABG pCO2 at Pt Temp ABG pO2 385.0 H ABG pO2 at Pt Temp ABG HCO3 21.7 ABG Total CO2 18.1 L ABG O2 Saturation 100.0 ABG Base Excess -3.3 L ABG Sodium VBG pH VBG pCO2 VBG pO2 VBG HCO3 VBG Total CO2 VBG O2 Saturation VBG Base Excess Hemoglobin 9.1 L Hematocrit 28.3 L Potassium 3.9 3.7 Glucose 163 H 158 H Ionized Calcium FiO2 Sodium 144 Chloride 112 H Carbon Dioxide 21 Anion Gap 14.9 BUN 20 H Creatinine 1.50 H GFR Calculation 41 BUN/Creatinine Ratio 13.00 Calculated Osmolality 292.8 Calcium 8.0 L Venous Ioniz Calcium Magnesium 1.6 L Total Bilirubin 0.90 Direct Bilirubin AST 40 H ALT 18 Alkaline Phosphatase 58 Total Creatine Kinase CK-MB (CK-2) CK and CKMB Interp Troponin I Total Protein 4.7 L Albumin 2.4 L Globulin 2.3 Albumin/Globulin Ratio 1.0 L Blood Type Antibody Screen Crossmatch Blood Bank Comment 01/21/17 01/21/17 01/21/17 10:40 12:30 15:00 WBC RBC Hgb Hct MCV MCH MCHC RDW Plt Count MPV Neut % (Auto) Lymph % (Auto) [place] % (Auto) Eos % (Auto) Baso % (Auto) Neut # (Auto) Lymph # (Auto) [place] # (Auto) Eos # (Auto) Baso # (Auto) Total Counted Immature Gran % Nucleated RBC % Immature Gran # Segmented Neutrophils Band Neutrophils Lymphocytes Monocytes Nucleated RBCs # Platelet Estimate Hypochromasia Macrocytosis Ovalocytes INR PT Patient/Control Mix Circ Anticoag PTT Patient Temperature ABG pH 7.496 H 7.436 ABG pH at Pt Temp ABG pCO2 25.3 L 31.4 L ABG pCO2 at Pt Temp ABG pO2 236.3 H 201.0 H ABG pO2 at Pt Temp ABG HCO3 19.1 L 22.4 ABG Total CO2 19.9 L 19.3 L ABG O2 Saturation 98.9 99.6 ABG Base Excess -3.0 L -2.4 ABG Sodium VBG pH VBG pCO2 VBG pO2 VBG HCO3 VBG Total CO2 VBG O2 Saturation VBG Base Excess Hemoglobin 10.6 L 9.4 L Hematocrit 31.0 L 29.1 L Potassium 3.8 4.6 Glucose 141 H 105 Ionized Calcium FiO2 Sodium Chloride Carbon Dioxide Anion Gap BUN Creatinine GFR Calculation BUN/Creatinine Ratio Calculated Osmolality Calcium Venous Ioniz Calcium Magnesium Total Bilirubin Direct Bilirubin AST ALT Alkaline Phosphatase Total Creatine Kinase 229 H CK-MB (CK-2) 17.9 H CK and CKMB Interp 7.8 Troponin I 4.890 H Total Protein Albumin Globulin Albumin/Globulin Ratio Blood Type Antibody Screen Crossmatch Blood Bank Comment 01/21/17 01/21/17 01/21/17 17:15 18:50 20:08 WBC RBC Hgb Hct MCV MCH MCHC RDW Plt Count MPV Neut % (Auto) Lymph % (Auto) [place] % (Auto) Eos % (Auto) Baso % (Auto) Neut # (Auto) Lymph # (Auto) [place] # (Auto) Eos # (Auto) Baso # (Auto) Total Counted Immature Gran % Nucleated RBC % Immature Gran # Segmented Neutrophils Band Neutrophils Lymphocytes Monocytes Nucleated RBCs # Platelet Estimate Hypochromasia Macrocytosis Ovalocytes INR PT Patient/Control Mix Circ Anticoag PTT Patient Temperature ABG pH 7.428 7.407 ABG pH at Pt Temp ABG pCO2 31.7 L 32.9 L ABG pCO2 at Pt Temp ABG pO2 154.0 H 122.0 H ABG pO2 at Pt Temp ABG HCO3 22.3 21.7 ABG Total CO2 18.8 L 18.7 L ABG O2 Saturation 99.6 98.9 ABG Base Excess -2.6 L -3.2 L ABG Sodium VBG pH VBG pCO2 VBG pO2 VBG HCO3 VBG Total CO2 VBG O2 Saturation VBG Base Excess Hemoglobin 10.6 L 10.4 L Hematocrit 32.8 L 32.2 L Potassium 4.4 4.1 Glucose 148 H 138 H Ionized Calcium FiO2 Sodium Chloride Carbon Dioxide Anion Gap BUN Creatinine GFR Calculation BUN/Creatinine Ratio Calculated Osmolality Calcium Venous Ioniz Calcium Magnesium Total Bilirubin Direct Bilirubin AST ALT Alkaline Phosphatase Total Creatine Kinase 233 H CK-MB (CK-2) 11.5 H D CK and CKMB Interp 4.9 Troponin I 5.570 H Total Protein Albumin Globulin Albumin/Globulin Ratio Blood Type Antibody Screen Crossmatch Blood Bank Comment 01/21/17 01/21/17 01/22/17 23:30 Unknown 03:30 WBC RBC Hgb Hct MCV MCH MCHC RDW Plt Count MPV Neut % (Auto) Lymph % (Auto) [place] % (Auto) Eos % (Auto) Baso % (Auto) Neut # (Auto) Lymph # (Auto) [place] # (Auto) Eos # (Auto) Baso # (Auto) Total Counted Immature Gran % Nucleated RBC % Immature Gran # Segmented Neutrophils Band Neutrophils Lymphocytes Monocytes Nucleated RBCs # Platelet Estimate Hypochromasia Macrocytosis Ovalocytes INR PT Patient/Control Mix Circ Anticoag PTT Patient Temperature ABG pH 7.363 ABG pH at Pt Temp ABG pCO2 38.2 ABG pCO2 at Pt Temp ABG pO2 139.0 H ABG pO2 at Pt Temp ABG HCO3 21.7 ABG Total CO2 19.8 L ABG O2 Saturation 99.1 ABG Base Excess -3.3 L ABG Sodium VBG pH VBG pCO2 VBG pO2 VBG HCO3 VBG Total CO2 VBG O2 Saturation VBG Base Excess Hemoglobin 10.0 L Hematocrit 31.0 L Potassium 4.2 Glucose 128 H Ionized Calcium FiO2 Sodium Chloride Carbon Dioxide Anion Gap BUN Creatinine GFR Calculation BUN/Creatinine Ratio Calculated Osmolality Calcium Venous Ioniz Calcium Magnesium Total Bilirubin Direct Bilirubin AST ALT Alkaline Phosphatase Total Creatine Kinase 207 H CK-MB (CK-2) 7.8 H CK and CKMB Interp 3.8 Troponin I 3.210 H D Total Protein Albumin Globulin Albumin/Globulin Ratio Blood Type Cancelled Antibody Screen Cancelled Crossmatch See Detail Blood Bank Comment Cancelled 01/22/17 01/22/17 01/22/17 03:30 03:30 03:30 WBC 11.2 D RBC 3.36 L Hgb 9.7 L Hct 30.2 L MCV 89.9 MCH 29 MCHC 32.1 RDW 16.3 Plt Count 83 L MPV 11.0 Neut % (Auto) 91.1 H Lymph % (Auto) 4.3 L [place] % (Auto) 4.1 Eos % (Auto) 0.0 Baso % (Auto) 0.1 Neut # (Auto) 10.2 H Lymph # (Auto) 0.5 L [place] # (Auto) 0.5 Eos # (Auto) 0.0 Baso # (Auto) 0.0 Total Counted 100 Immature Gran % 0.4 Nucleated RBC % 0.0 Immature Gran # 0.05 Segmented Neutrophils 91 H Band Neutrophils 1 Lymphocytes 7 L Monocytes 1 L Nucleated RBCs # 0.00 Platelet Estimate Decreased Hypochromasia Macrocytosis Ovalocytes 1+ INR PT Patient/Control Mix Circ Anticoag PTT Patient Temperature ABG pH 7.366 ABG pH at Pt Temp ABG pCO2 38.4 ABG pCO2 at Pt Temp ABG pO2 141.0 H ABG pO2 at Pt Temp ABG HCO3 21.9 ABG Total CO2 20.0 L ABG O2 Saturation 99.1 ABG Base Excess -3.0 L ABG Sodium VBG pH VBG pCO2 VBG pO2 VBG HCO3 VBG Total CO2 VBG O2 Saturation VBG Base Excess Hemoglobin 10.0 L Hematocrit 30.8 L Potassium 4.5 4.4 Glucose 122 H 127 H Ionized Calcium FiO2 Sodium 144 Chloride 112 H Carbon Dioxide 22 Anion Gap 14.5 BUN 24 H Creatinine 1.50 H GFR Calculation 41 BUN/Creatinine Ratio 16.00 Calculated Osmolality 290.8 Calcium 8.3 L Venous Ioniz Calcium Magnesium 2.1 Total Bilirubin 1.00 Direct Bilirubin 0.30 H AST 36 ALT 17 Alkaline Phosphatase 44 L Total Creatine Kinase CK-MB (CK-2) CK and CKMB Interp Troponin I Total Protein 5.5 L Albumin 3.5 Globulin 2.0 L Albumin/Globulin Ratio 1.7 Blood Type Antibody Screen Crossmatch Blood Bank Comment 01/22/17 01/22/17 05:50 08:00 WBC RBC Hgb Hct MCV MCH MCHC RDW Plt Count MPV Neut % (Auto) Lymph % (Auto) [place] % (Auto) Eos % (Auto) Baso % (Auto) Neut # (Auto) Lymph # (Auto) [place] # (Auto) Eos # (Auto) Baso # (Auto) Total Counted Immature Gran % Nucleated RBC % Immature Gran # Segmented Neutrophils Band Neutrophils Lymphocytes Monocytes Nucleated RBCs # Platelet Estimate Hypochromasia Macrocytosis Ovalocytes INR PT Patient/Control Mix Circ Anticoag PTT Patient Temperature ABG pH 7.359 7.355 ABG pH at Pt Temp ABG pCO2 38.1 38.8 ABG pCO2 at Pt Temp ABG pO2 142.0 H 145.0 H ABG pO2 at Pt Temp ABG HCO3 21.4 21.5 ABG Total CO2 19.7 L 19.9 L ABG O2 Saturation 98.8 99.1 ABG Base Excess -3.6 L -3.5 L ABG Sodium VBG pH VBG pCO2 VBG pO2 VBG HCO3 VBG Total CO2 VBG O2 Saturation VBG Base Excess Hemoglobin 9.8 L 9.7 L Hematocrit 30.4 L 29.9 L Potassium 4.9 4.4 Glucose 124 H 130 H Ionized Calcium FiO2 Sodium Chloride Carbon Dioxide Anion Gap BUN Creatinine GFR Calculation BUN/Creatinine Ratio Calculated Osmolality Calcium Venous Ioniz Calcium Magnesium Total Bilirubin Direct Bilirubin AST ALT Alkaline Phosphatase Total Creatine Kinase CK-MB (CK-2) CK and CKMB Interp Troponin I Total Protein Albumin Globulin Albumin/Globulin Ratio Blood Type Antibody Screen Crossmatch Blood Bank Comment Quality Measures - VTE Contraindication to Pharmacological VTE Prophylaxis: High Risk of Bleeding
[2017-01-22] MEDS ORDERED: ACETAMINOPHEN 325 MG TABLET PO PRN (08:23)
[2017-01-22] MEDS ORDERED: oxyCODONE/ACETAMINOPHEN 5-325 MG TABLET PO PRN (08:23)
[2017-01-22 09:17] LABS: ABG Base Excess -3.4 MMOL/L (-2.5-2.5); ABG HCO3 21.6 MMOL/L (20-26); ABG Oxygen Saturation 98.5 % (95-100); ABG PCO2 37.5 MM HG (35-48); ABG PH 7.367 (7.35-7.45); ABG TCO2 19.8 MMOL/L (23-27); Glucose Heart Surgery 139 MG/DL (74-106); Hemoglobin Heart Surgery 9.4 G/DL (12.0-16.0); Potassium Heart/CVR 4.4 MMOL/L (3.5-5.1)
[2017-01-22] MEDS: BUMETANIDE 1 MG TABLET PO SCH ×2 (09:33→15:47)
[2017-01-22] MEDS: DILTIAZEM CD 240 MG CAPSULE PO SCH (09:34)
[2017-01-22] MEDS: CHLORHEXIDINE 0.12% ORAL RINSE 60 ML BOTTLE SWISH/SPIT SCH ×2 (09:34→20:37)
--- NOTE | 2017-01-22 09:50 | XRay Report ---
Referring Physician: Jon Reyna Exam: XR chest 1V portable Date: January 22, 2017 at 7:56 AM Reason: Post chest tube removal, evaluate for pneumothorax Comparison: Chest one view portable January 21, 2017 Findings: A right IJ catheter, endotracheal tube, feeding tube and [place]udh catheter are again in place. The cardiac silhouette is again mildly enlarged, and the patient is status post sternotomy with valve replacement. There are mild scattered opacities within both lungs. This likely represent atelectasis and possibly mild pulmonary edema. No pneumothorax is identified, but there is minimal bilateral pleural fluid. The osseous structures appear stable. Impression: There has been no significant change. PROCEDURE INTERPRETED AT [facility] DEPARTMENT OF RADIOLOGY Final Report Signed by: Dr. Jen Pedraza
[2017-01-22] MEDS: SODIUM CHLORIDE 0.45% 1,000 ML IV SCH ×2 (10:29)
[2017-01-22] MEDS: VANCOMYCIN INJ 1,000 MG in SODIUM CHLORIDE 0.9% 250 ML IV SCH ×2 (10:49→23:31)
[2017-01-22] MEDS: INSULIN REGULAR DRIP 100 ML IV SCH (10:51)
--- NOTE | 2017-01-22 10:56 | Hospitalist Progress Note ---
Assessment and Plan (1) DM2 (diabetes mellitus, type 2) Status: Chronic Assessment and plan: The patient is postop day #1 from aortic valve replacement. The patient has diabetes mellitus type 2 and the patient will be treated in the postoperative phase with insulin infusion and then insulin subcutaneously once she is taking oral nutrition Current Visit: Yes Qualifiers: Diabetes mellitus complication status: with kidney complications Diabetes mellitus complication detail: with chronic kidney disease Chronic kidney disease stage: stage 3 (moderate) (2) CKD (chronic kidney disease) stage 3, GFR 30-59 ml/min Status: Chronic Current Visit: Yes (3) Aortic stenosis Status: Chronic Current Visit: Yes Qualifiers: Cardiac valve disease etiology: etiology unspecified Qualified Code(s): I35.0 - Nonrheumatic aortic (valve) stenosis Hospitalist: Subjective Interval history: This is postoperative day #1 with aortic valve replacement. The patient has been extubated. The patient continues on insulin infusion. Glucose is well controlled. Exam - Constitutional Vitals: Period Temp Pulse Resp BP Sys/Link Pulse Ox Last 24 Hr 96.7 F-99.1 F 60-90 8-19 99-200/25-76 99-100 Exam: Constitutional System: The patient is breathing spontaneously with good effort Head: Normocephalic, atraumatic. Ears, Nose and Throat System: No evidence of Otitis or Mastoiditis. No epistaxis or discharge Eyes System: Pupils equal, round, and reactive. Extraocular muscles intact. Neck: Supple, without adenopathy, No jugular venous distention. No thyromegaly , neck mass, or prior surgery apparent. Respiratory System: Chest clear to auscultation. Results - Labs CBC & BMP: 01/22/17 03:30 01/22/17 03:30 Lab Results: I have reviewed the past 24 hour labs Quality Measures - VTE Contraindication to Pharmacological VTE Prophylaxis: High Risk of Bleeding
[2017-01-22 12:14] LABS: CKMB % 2.7 %
[2017-01-22 12:15] LABS: Troponin I Only 2.33 NG/ML (0.00-0.045)
[2017-01-22] MEDS ORDERED: INSULIN REGULAR 100 UNIT/ML SUBCUT SCH (14:00)
[2017-01-22] MEDS: SODIUM CHLOR 0.45% KCL 20 MEQ 20 MEQ/1,000 ML BAG IV SCH (14:54)
[2017-01-22] MEDS: INSULIN REGULAR 100 UNIT/ML SUBCUT SCH ×2 (15:43→20:00)
[2017-01-22] MEDS: DOBUTamine 500 MG/250 ML PREMIX IV SCH (19:09)
[2017-01-22] MEDS: NITROGLYCERIN DRIP 50 MG/250 ML BOTTLE IV SCH (20:38)
[2017-01-23] MEDS: INSULIN REGULAR 100 UNIT/ML SUBCUT SCH ×6 (01:40→19:54)
[2017-01-23 04:27] LABS: ABG HCO3 21.9 MMOL/L (20-26); ABG Oxygen Saturation 95.8 % (95-100); ABG PCO2 35.3 MM HG (35-48); ABG PH 7.392 (7.35-7.45); ABG TCO2 19.8 MMOL/L (23-27)
[2017-01-23 04:54] LABS: Basophils % 0.1 % (0.0-0.8); Hematocrit 26.8 VOL% (35.7-47.0); Hemoglobin 8.7 GM/DL (12.0-16.0); Immature Granulocytes % 0.7 %; Immature Granulocytes Absolute 0.08 #; Lymphocytes # 0.4 10*3/uL (1.4-4.0); Lymphocytes % 3.1 % (21.3-54.2); Mean Corpuscular HGB Conc 32.5 GM/DL (32-36); Mean Corpuscular Hemoglobin 29 PG (27-34); Mean Corpuscular Volume 89.3 FL (87-102); Mean Platelet Volume 11.5 FL (9.6-12.0); Monocytes # 0.8 10*3/uL (0.11-0.8); Monocytes % 6.4 % (1.7-12.7); Neutrophils # 10.7 10*3/uL (1.4-7.4); Neutrophils % 89.7 % (38.7-73.9); Platelet Count 90 T/CUMM (130-400); Red Cell Distribution Width 16.7 % (9.3-17.3); White Blood Count 11.9 T/CUMM (4-12)
[2017-01-23 05:22] LABS: Albumin 2.9 G/DL (3.4-5.0); Bilirubin,Direct 0.2 MG/DL (0.0-0.20); Bilirubin,Total 0.6 MG/DL (0.2-1.0); Calcium 7.8 MG/DL (8.5-10.1); Potassium 4.8 MMOL/L (3.5-5.1); Total Protein 5.3 G/DL (6.4-8.3)
[2017-01-23 06:07] LABS: Band Neutrophils 3 % (0-10); Hypochromasia 2+; Lymphocytes 4 % (20-55); Platelet Estimate Decreased; Segmented Neutrophils 87 % (50-85); Total Cells Counted 100
--- NOTE | 2017-01-23 08:00 | Cardiothoracic Progress Note ---
Cardiothoracic Subjective Interval history: Patient is awake alert and extubated. Vital signs have been stable although she remains on the hypertensive side. She is breathing comfortably and her blood gases are adequate this morning. Urine output also has been adequate although her creatinine is 1.8 this morning up from 1.6 preop. We will continue to monitor this closely. I am going to add clonidine to her antihypertensive regimen and I think we will watch her for 1 more day in intensive care before transferring to telemetry. Overall however her progress does seem satisfactory. Exam (Progress Note) - Constitutional Vitals: Period Temp Pulse Resp BP Sys/Link Pulse Ox Last 24 Hr 97.0 F-99.0 F 70-85 10-24 122-200/25-71 95-100 Result/EKG - Labs CBC & BMP: 01/23/17 04:45 01/23/17 04:45 Labs: Laboratory Results - last 24 hr 01/21/17 01/21/17 01/21/17 13:17 14:19 16:20 WBC RBC Hgb Hct MCV MCH MCHC RDW Plt Count MPV Neut % (Auto) Lymph % (Auto) [place] % (Auto) Eos % (Auto) Baso % (Auto) Neut # (Auto) Lymph # (Auto) [place] # (Auto) Eos # (Auto) Baso # (Auto) Total Counted Immature Gran % Nucleated RBC % Immature Gran # Segmented Neutrophils Band Neutrophils Lymphocytes Monocytes Nucleated RBCs # Platelet Estimate Hypochromasia ABG pH ABG pCO2 ABG pO2 ABG HCO3 ABG Total CO2 ABG O2 Saturation ABG Base Excess Hemoglobin Hematocrit Potassium Glucose Sodium Chloride Carbon Dioxide Anion Gap BUN Creatinine GFR Calculation BUN/Creatinine Ratio POC Glucose 104 82 118 H Calculated Osmolality Calcium Magnesium Total Bilirubin Direct Bilirubin AST ALT Alkaline Phosphatase Total Creatine Kinase CK-MB (CK-2) CK and CKMB Interp Troponin I Total Protein Albumin Globulin Albumin/Globulin Ratio Crossmatch 01/21/17 01/21/17 01/21/17 18:17 19:15 21:03 WBC RBC Hgb Hct MCV MCH MCHC RDW Plt Count MPV Neut % (Auto) Lymph % (Auto) [place] % (Auto) Eos % (Auto) Baso % (Auto) Neut # (Auto) Lymph # (Auto) [place] # (Auto) Eos # (Auto) Baso # (Auto) Total Counted Immature Gran % Nucleated RBC % Immature Gran # Segmented Neutrophils Band Neutrophils Lymphocytes Monocytes Nucleated RBCs # Platelet Estimate Hypochromasia ABG pH ABG pCO2 ABG pO2 ABG HCO3 ABG Total CO2 ABG O2 Saturation ABG Base Excess Hemoglobin Hematocrit Potassium Glucose Sodium Chloride Carbon Dioxide Anion Gap BUN Creatinine GFR Calculation BUN/Creatinine Ratio POC Glucose 103 153 H 168 H Calculated Osmolality Calcium Magnesium Total Bilirubin Direct Bilirubin AST ALT Alkaline Phosphatase Total Creatine Kinase CK-MB (CK-2) CK and CKMB Interp Troponin I Total Protein Albumin Globulin Albumin/Globulin Ratio Crossmatch 01/21/17 01/21/17 01/21/17 22:09 23:06 Unknown WBC RBC Hgb Hct MCV MCH MCHC RDW Plt Count MPV Neut % (Auto) Lymph % (Auto) [place] % (Auto) Eos % (Auto) Baso % (Auto) Neut # (Auto) Lymph # (Auto) [place] # (Auto) Eos # (Auto) Baso # (Auto) Total Counted Immature Gran % Nucleated RBC % Immature Gran # Segmented Neutrophils Band Neutrophils Lymphocytes Monocytes Nucleated RBCs # Platelet Estimate Hypochromasia ABG pH ABG pCO2 ABG pO2 ABG HCO3 ABG Total CO2 ABG O2 Saturation ABG Base Excess Hemoglobin Hematocrit Potassium Glucose Sodium Chloride Carbon Dioxide Anion Gap BUN Creatinine GFR Calculation BUN/Creatinine Ratio POC Glucose 120 H 130 H Calculated Osmolality Calcium Magnesium Total Bilirubin Direct Bilirubin AST ALT Alkaline Phosphatase Total Creatine Kinase CK-MB (CK-2) CK and CKMB Interp Troponin I Total Protein Albumin Globulin Albumin/Globulin Ratio Crossmatch See Detail 01/22/17 01/22/17 01/22/17 00:02 01:06 02:05 WBC RBC Hgb Hct MCV MCH MCHC RDW Plt Count MPV Neut % (Auto) Lymph % (Auto) [place] % (Auto) Eos % (Auto) Baso % (Auto) Neut # (Auto) Lymph # (Auto) [place] # (Auto) Eos # (Auto) Baso # (Auto) Total Counted Immature Gran % Nucleated RBC % Immature Gran # Segmented Neutrophils Band Neutrophils Lymphocytes Monocytes Nucleated RBCs # Platelet Estimate Hypochromasia ABG pH ABG pCO2 ABG pO2 ABG HCO3 ABG Total CO2 ABG O2 Saturation ABG Base Excess Hemoglobin Hematocrit Potassium Glucose Sodium Chloride Carbon Dioxide Anion Gap BUN Creatinine GFR Calculation BUN/Creatinine Ratio POC Glucose 122 H 115 H 116 H Calculated Osmolality Calcium Magnesium Total Bilirubin Direct Bilirubin AST ALT Alkaline Phosphatase Total Creatine Kinase CK-MB (CK-2) CK and CKMB Interp Troponin I Total Protein Albumin Globulin Albumin/Globulin Ratio Crossmatch 01/22/17 01/22/17 01/22/17 03:00 04:02 05:08 WBC RBC Hgb Hct MCV MCH MCHC RDW Plt Count MPV Neut % (Auto) Lymph % (Auto) [place] % (Auto) Eos % (Auto) Baso % (Auto) Neut # (Auto) Lymph # (Auto) [place] # (Auto) Eos # (Auto) Baso # (Auto) Total Counted Immature Gran % Nucleated RBC % Immature Gran # Segmented Neutrophils Band Neutrophils Lymphocytes Monocytes Nucleated RBCs # Platelet Estimate Hypochromasia ABG pH ABG pCO2 ABG pO2 ABG HCO3 ABG Total CO2 ABG O2 Saturation ABG Base Excess Hemoglobin Hematocrit Potassium Glucose Sodium Chloride Carbon Dioxide Anion Gap BUN Creatinine GFR Calculation BUN/Creatinine Ratio POC Glucose 120 H 108 H 127 H Calculated Osmolality Calcium Magnesium Total Bilirubin Direct Bilirubin AST ALT Alkaline Phosphatase Total Creatine Kinase CK-MB (CK-2) CK and CKMB Interp Troponin I Total Protein Albumin Globulin Albumin/Globulin Ratio Crossmatch 01/22/17 01/22/17 01/22/17 07:07 08:00 09:11 WBC RBC Hgb Hct MCV MCH MCHC RDW Plt Count MPV Neut % (Auto) Lymph % (Auto) [place] % (Auto) Eos % (Auto) Baso % (Auto) Neut # (Auto) Lymph # (Auto) [place] # (Auto) Eos # (Auto) Baso # (Auto) Total Counted Immature Gran % Nucleated RBC % Immature Gran # Segmented Neutrophils Band Neutrophils Lymphocytes Monocytes Nucleated RBCs # Platelet Estimate Hypochromasia ABG pH 7.355 7.367 ABG pCO2 38.8 37.5 ABG pO2 145.0 H 119.0 H ABG HCO3 21.5 21.6 ABG Total CO2 19.9 L 19.8 L ABG O2 Saturation 99.1 98.5 ABG Base Excess -3.5 L -3.4 L Hemoglobin 9.7 L 9.4 L Hematocrit 29.9 L 29.0 L Potassium 4.4 4.4 Glucose 130 H 139 H Sodium Chloride Carbon Dioxide Anion Gap BUN Creatinine GFR Calculation BUN/Creatinine Ratio POC Glucose 119 H Calculated Osmolality Calcium Magnesium Total Bilirubin Direct Bilirubin AST ALT Alkaline Phosphatase Total Creatine Kinase CK-MB (CK-2) CK and CKMB Interp Troponin I Total Protein Albumin Globulin Albumin/Globulin Ratio Crossmatch 01/22/17 01/22/17 01/22/17 10:12 11:30 15:38 WBC RBC Hgb Hct MCV MCH MCHC RDW Plt Count MPV Neut % (Auto) Lymph % (Auto) [place] % (Auto) Eos % (Auto) Baso % (Auto) Neut # (Auto) Lymph # (Auto) [place] # (Auto) Eos # (Auto) Baso # (Auto) Total Counted Immature Gran % Nucleated RBC % Immature Gran # Segmented Neutrophils Band Neutrophils Lymphocytes Monocytes Nucleated RBCs # Platelet Estimate Hypochromasia ABG pH ABG pCO2 ABG pO2 ABG HCO3 ABG Total CO2 ABG O2 Saturation ABG Base Excess Hemoglobin Hematocrit Potassium Glucose Sodium Chloride Carbon Dioxide Anion Gap BUN Creatinine GFR Calculation BUN/Creatinine Ratio POC Glucose 113 H 134 H Calculated Osmolality Calcium Magnesium Total Bilirubin Direct Bilirubin AST ALT Alkaline Phosphatase Total Creatine Kinase 211 H CK-MB (CK-2) 5.6 H CK and CKMB Interp 2.7 Troponin I 2.330 H D Total Protein Albumin Globulin Albumin/Globulin Ratio Crossmatch 01/22/17 01/23/17 01/23/17 23:51 04:15 04:20 WBC RBC Hgb Hct MCV MCH MCHC RDW Plt Count MPV Neut % (Auto) Lymph % (Auto) [place] % (Auto) Eos % (Auto) Baso % (Auto) Neut # (Auto) Lymph # (Auto) [place] # (Auto) Eos # (Auto) Baso # (Auto) Total Counted Immature Gran % Nucleated RBC % Immature Gran # Segmented Neutrophils Band Neutrophils Lymphocytes Monocytes Nucleated RBCs # Platelet Estimate Hypochromasia ABG pH 7.392 ABG pCO2 35.3 ABG pO2 80.0 ABG HCO3 21.9 ABG Total CO2 19.8 L ABG O2 Saturation 95.8 ABG Base Excess -3.0 L Hemoglobin Hematocrit Potassium Glucose Sodium Chloride Carbon Dioxide Anion Gap BUN Creatinine GFR Calculation BUN/Creatinine Ratio POC Glucose 384 H 233 H Calculated Osmolality Calcium Magnesium Total Bilirubin Direct Bilirubin AST ALT Alkaline Phosphatase Total Creatine Kinase CK-MB (CK-2) CK and CKMB Interp Troponin I Total Protein Albumin Globulin Albumin/Globulin Ratio Crossmatch 01/23/17 01/23/17 04:45 04:45 WBC 11.9 RBC 3.00 L Hgb 8.7 L Hct 26.8 L MCV 89.3 MCH 29 MCHC 32.5 RDW 16.7 Plt Count 90 L MPV 11.5 Neut % (Auto) 89.7 H Lymph % (Auto) 3.1 L [place] % (Auto) 6.4 Eos % (Auto) 0.0 Baso % (Auto) 0.1 Neut # (Auto) 10.7 H Lymph # (Auto) 0.4 L [place] # (Auto) 0.8 Eos # (Auto) 0.0 Baso # (Auto) 0.0 Total Counted 100 Immature Gran % 0.7 Nucleated RBC % 0.0 Immature Gran # 0.08 Segmented Neutrophils 87 H Band Neutrophils 3 Lymphocytes 4 L Monocytes 6 Nucleated RBCs # 0.00 Platelet Estimate Decreased Hypochromasia 2+ ABG pH ABG pCO2 ABG pO2 ABG HCO3 ABG Total CO2 ABG O2 Saturation ABG Base Excess Hemoglobin Hematocrit Potassium 4.8 Glucose 310 H Sodium 143 Chloride 111 H Carbon Dioxide 22 Anion Gap 14.8 BUN 32 H Creatinine 1.80 H GFR Calculation 34 BUN/Creatinine Ratio 17.00 POC Glucose Calculated Osmolality 303.0 Calcium 7.8 L Magnesium 2.0 Total Bilirubin 0.60 Direct Bilirubin 0.20 AST 25 ALT 15 Alkaline Phosphatase 53 Total Creatine Kinase CK-MB (CK-2) CK and CKMB Interp Troponin I Total Protein 5.3 L Albumin 2.9 L Globulin 2.4 Albumin/Globulin Ratio 1.2 Crossmatch Quality Measures - VTE Contraindication to Pharmacological VTE Prophylaxis: High Risk of Bleeding
[2017-01-23] MEDS: BUMETANIDE 1 MG TABLET PO SCH ×2 (09:00→18:00)
[2017-01-23] MEDS: cloNIDine 0.1 MG TABLET PO SCH ×3 (09:00→18:00)
[2017-01-23] MEDS: DILTIAZEM CD 240 MG CAPSULE PO SCH (09:00)
[2017-01-23] MEDS: CHLORHEXIDINE 0.12% ORAL RINSE 60 ML BOTTLE SWISH/SPIT SCH ×2 (09:00→21:16)
--- NOTE | 2017-01-23 09:37 | XRay Report ---
Referring Physician: Jon Reyna Exam: XR chest 1V portable Date: January 23, 2017 at 3:09 AM Reason: Postop AVR Comparison: Chest one view portable January 22, 2017 Findings: A right IJ catheter is in place with its distal tip at the right atrium. The previously seen endotracheal tube, [place]-Anirudh catheter and feeding tube are no longer identified. The cardiac silhouette is again enlarged, and the patient is status post sternotomy with valve replacement. The interstitial markings are slightly prominent bilaterally, which could reflect minimal pulmonary edema. There may also be atelectasis at the left lung base, and minimal bilateral pleural fluid is suspected. No pneumothorax is identified. The osseous structures appear stable. Impression: The previously seen endotracheal tube, [place]-Anirudh catheter and feeding tube are no longer identified. The study is otherwise similar to before. PROCEDURE INTERPRETED AT [facility] DEPARTMENT OF RADIOLOGY Final Report Signed by: Dr. Jen Pedraza
--- NOTE | 2017-01-23 11:00 | Hospitalist Progress Note ---
Assessment and Plan (1) DM2 (diabetes mellitus, type 2) Status: Chronic Assessment and plan: The patient is postop day #2 from aortic valve replacement. The patient has diabetes mellitus type 2 and the patient has now restarted oral antidiabetic medication. The patient has inadequate glucose control so I am going to add a dose of Lantus daily and increase her sliding scale insulin to the high scale every 4 hours as needed. Current Visit: Yes Qualifiers: Diabetes mellitus complication status: with kidney complications Diabetes mellitus complication detail: with chronic kidney disease Chronic kidney disease stage: stage 3 (moderate) (2) CKD (chronic kidney disease) stage 3, GFR 30-59 ml/min Status: Chronic Current Visit: Yes (3) Aortic stenosis Status: Chronic Current Visit: Yes Qualifiers: Cardiac valve disease etiology: etiology unspecified Qualified Code(s): I35.0 - Nonrheumatic aortic (valve) stenosis Hospitalist: Subjective Interval history: Mrs. Freitas is making satisfactory hemodynamic progress following aortic valve surgery. The patient will remain in intensive care unit overnight. The patient 's oral intake is moderate. The patient is excessively hyperglycemic. Exam - Constitutional Vitals: Period Temp Pulse Resp BP Sys/Link Pulse Ox Last 24 Hr 97.7 F-99.0 F 70-82 10-24 122-173/42-63 95-100 Exam: Constitutional System: The patient is breathing spontaneously with good effort Head: Normocephalic, atraumatic. Ears, Nose and Throat System: No evidence of Otitis or Mastoiditis. No epistaxis or discharge Eyes System: Pupils equal, round, and reactive. Extraocular muscles intact. Neck: Supple, without adenopathy, No jugular venous distention. No thyromegaly , neck mass, or prior surgery apparent. Respiratory System: Chest clear to auscultation. Results - Labs CBC & BMP: 01/23/17 04:45 01/23/17 04:45 Lab Results: I have reviewed the past 24 hour labs Quality Measures - VTE Contraindication to Pharmacological VTE Prophylaxis: High Risk of Bleeding
[2017-01-23] MEDS: INSULIN GLARGINE 100 UNIT/ML SUBCUT SCH (12:00)
[2017-01-23] MEDS: SODIUM CHLOR 0.45% KCL 20 MEQ 20 MEQ/1,000 ML BAG IV SCH (19:13)
[2017-01-24] MEDS: cloNIDine 0.1 MG TABLET PO SCH ×5 (00:08→23:55)
[2017-01-24] MEDS: INSULIN REGULAR 100 UNIT/ML SUBCUT SCH ×4 (00:08→09:35)
[2017-01-24 03:45] LABS: ABG Base Excess -0.4 MMOL/L (-2.5-2.5); ABG HCO3 24.1 MMOL/L (20-26); ABG Oxygen Saturation 95.8 % (95-100); ABG PCO2 35.8 MM HG (35-48); ABG PH 7.428 (7.35-7.45); ABG PO2 77.1 MM HG (80-95); ABG TCO2 21.8 MMOL/L (23-27); Pt O2 Delivery Device Room Air
[2017-01-24 04:33] LABS: Basophils % 0.1 % (0.0-0.8); Eosinophils % 0.1 % (0.00-10.9); Hemoglobin 9.4 GM/DL (12.0-16.0); Immature Granulocytes % 1.1 %; Immature Granulocytes Absolute 0.12 #; Lymphocytes # 0.7 10*3/uL (1.4-4.0); Lymphocytes % 6.5 % (21.3-54.2); Mean Corpuscular HGB Conc 32.4 GM/DL (32-36); Mean Corpuscular Hemoglobin 29 PG (27-34); Mean Corpuscular Volume 90.3 FL (87-102); Mean Platelet Volume 11.8 FL (9.6-12.0); Monocytes # 0.7 10*3/uL (0.11-0.8); Monocytes % 6.8 % (1.7-12.7); Neutrophils % 85.4 % (38.7-73.9); Red Blood Count 3.21 MC/CUMM (3.8-5.5); White Blood Count 10.5 T/CUMM (4-12)
[2017-01-24 04:35] LABS: Platelet Count 97 T/CUMM (130-400)
[2017-01-24 05:03] LABS: Troponin I Only 0.788 NG/ML (0.00-0.045)
[2017-01-24 05:05] LABS: Hypochromasia Slight; Microcytosis 1+; Ovalocytes Slight; Platelet Estimate Decreased
[2017-01-24 05:24] LABS: Albumin 2.8 G/DL (3.4-5.0); Bilirubin,Direct 0.1 MG/DL (0.0-0.20); Bilirubin,Total 0.5 MG/DL (0.2-1.0); Magnesium 1.8 MG/DL (1.8-2.4); Osmolality,Calculated 296.8 MOS/KG (273-304); Potassium 4.1 MMOL/L (3.5-5.1); Total Protein 5.5 G/DL (6.4-8.3)
[2017-01-24] MEDS: MAGNESIUM SULF RIDER 2 GM in PREMIX 1 EACH IV PRN (05:32)
--- NOTE | 2017-01-24 06:15 | Cardiothoracic Progress Note ---
Cardiothoracic Subjective Interval history: Patient looks and feels okay. She is awake alert and responsive. She no longer seems to have periods of confusion. Vital signs have been stable and she is breathing comfortably and her laboratory work all his basically within normal limits and her creatinine is down slightly from yesterday. Overall her progress seems satisfactory and I think she can be transferred to telemetry later this morning. Exam (Progress Note) - Constitutional Vitals: Period Temp Pulse Resp BP Sys/Link Pulse Ox Last 24 Hr 97.6 F-99.6 F 60-79 12-61 121-165/46-80 94-98 Result/EKG - Labs CBC & BMP: 01/24/17 04:00 01/24/17 04:00 Labs: Laboratory Results - last 24 hr 01/21/17 01/23/17 01/23/17 Unknown 04:20 11:38 WBC RBC Hgb Hct MCV MCH MCHC RDW Plt Count MPV Neut % (Auto) Lymph % (Auto) [place] % (Auto) Eos % (Auto) Baso % (Auto) Neut # (Auto) Lymph # (Auto) [place] # (Auto) Eos # (Auto) Baso # (Auto) Immature Gran % Nucleated RBC % Immature Gran # Nucleated RBCs # Platelet Estimate Hypochromasia Microcytosis Ovalocytes ABG pH ABG pCO2 ABG pO2 ABG HCO3 ABG Total CO2 ABG O2 Saturation ABG Base Excess FiO2 Sodium Potassium Chloride Carbon Dioxide Anion Gap BUN Creatinine GFR Calculation BUN/Creatinine Ratio Glucose POC Glucose 233 H 328 H Calculated Osmolality Calcium Magnesium Total Bilirubin Direct Bilirubin AST ALT Alkaline Phosphatase Total Creatine Kinase CK-MB (CK-2) Troponin I Total Protein Albumin Globulin Albumin/Globulin Ratio Crossmatch See Detail 01/23/17 01/23/17 01/24/17 15:34 19:50 00:02 WBC RBC Hgb Hct MCV MCH MCHC RDW Plt Count MPV Neut % (Auto) Lymph % (Auto) [place] % (Auto) Eos % (Auto) Baso % (Auto) Neut # (Auto) Lymph # (Auto) [place] # (Auto) Eos # (Auto) Baso # (Auto) Immature Gran % Nucleated RBC % Immature Gran # Nucleated RBCs # Platelet Estimate Hypochromasia Microcytosis Ovalocytes ABG pH ABG pCO2 ABG pO2 ABG HCO3 ABG Total CO2 ABG O2 Saturation ABG Base Excess FiO2 Sodium Potassium Chloride Carbon Dioxide Anion Gap BUN Creatinine GFR Calculation BUN/Creatinine Ratio Glucose POC Glucose 294 H 232 H 225 H Calculated Osmolality Calcium Magnesium Total Bilirubin Direct Bilirubin AST ALT Alkaline Phosphatase Total Creatine Kinase CK-MB (CK-2) Troponin I Total Protein Albumin Globulin Albumin/Globulin Ratio Crossmatch 01/24/17 01/24/17 01/24/17 03:10 03:56 04:00 WBC 10.5 RBC 3.21 L Hgb 9.4 L Hct 29.0 L MCV 90.3 MCH 29 MCHC 32.4 RDW 16.0 Plt Count 97 L MPV 11.8 Neut % (Auto) 85.4 H Lymph % (Auto) 6.5 L [place] % (Auto) 6.8 Eos % (Auto) 0.1 Baso % (Auto) 0.1 Neut # (Auto) 9.0 H Lymph # (Auto) 0.7 L [place] # (Auto) 0.7 Eos # (Auto) 0.0 Baso # (Auto) 0.0 Immature Gran % 1.1 Nucleated RBC % 0.0 Immature Gran # 0.12 Nucleated RBCs # 0.00 Platelet Estimate Decreased Hypochromasia Slight Microcytosis 1+ Ovalocytes Slight ABG pH 7.428 ABG pCO2 35.8 ABG pO2 77.1 L ABG HCO3 24.1 ABG Total CO2 21.8 L ABG O2 Saturation 95.8 ABG Base Excess -0.4 FiO2 21.00 Sodium Potassium Chloride Carbon Dioxide Anion Gap BUN Creatinine GFR Calculation BUN/Creatinine Ratio Glucose POC Glucose 151 H Calculated Osmolality Calcium Magnesium Total Bilirubin Direct Bilirubin AST ALT Alkaline Phosphatase Total Creatine Kinase CK-MB (CK-2) Troponin I Total Protein Albumin Globulin Albumin/Globulin Ratio Crossmatch 01/24/17 01/24/17 04:00 04:00 WBC RBC Hgb Hct MCV MCH MCHC RDW Plt Count MPV Neut % (Auto) Lymph % (Auto) [place] % (Auto) Eos % (Auto) Baso % (Auto) Neut # (Auto) Lymph # (Auto) [place] # (Auto) Eos # (Auto) Baso # (Auto) Immature Gran % Nucleated RBC % Immature Gran # Nucleated RBCs # Platelet Estimate Hypochromasia Microcytosis Ovalocytes ABG pH ABG pCO2 ABG pO2 ABG HCO3 ABG Total CO2 ABG O2 Saturation ABG Base Excess FiO2 Sodium 144 Potassium 4.1 Chloride 109 H Carbon Dioxide 25 Anion Gap 14.1 BUN 37 H Creatinine 1.70 H GFR Calculation 35 BUN/Creatinine Ratio 21.00 H Glucose 140 H POC Glucose Calculated Osmolality 296.8 Calcium 8.0 L Magnesium 1.8 Total Bilirubin 0.50 Direct Bilirubin 0.10 AST 24 ALT 28 Alkaline Phosphatase 63 Total Creatine Kinase 114 D CK-MB (CK-2) < 1.0 Troponin I 0.788 H D Total Protein 5.5 L Albumin 2.8 L Globulin 2.7 Albumin/Globulin Ratio 1.0 L Crossmatch Quality Measures - VTE Contraindication to Pharmacological VTE Prophylaxis: High Risk of Bleeding
[2017-01-24] MEDS ORDERED: DEXTROSE 50% 25 GM/50 ML VIAL IV PRN ×2 (06:17)
[2017-01-24] MEDS ORDERED: GLUCAGON 1 MG VIAL IM PRN ×2 (06:17)
[2017-01-24] MEDS ORDERED: ZALEPLON 5 MG CAPSULE PO PRN (06:17)
[2017-01-24] MEDS ORDERED: MAGNESIUM SULF RIDER 2 GM in PREMIX 1 EACH IV PRN (06:17)
[2017-01-24] MEDS ORDERED: ONDANSETRON 4 MG/2 ML VIAL IV PRN (06:17)
[2017-01-24] MEDS ORDERED: MAGNESIUM HYDROXIDE SUSP 30 ML UDCUP PO PRN (06:17)
[2017-01-24] MEDS ORDERED: MAGNESIUM SULF RIDER 4 GM in PREMIX 1 EACH IV PRN (06:17)
[2017-01-24] MEDS ORDERED: oxyCODONE/ACETAMINOPHEN 5-325 MG TABLET PO PRN (06:17)
[2017-01-24] MEDS ORDERED: ACETAMINOPHEN 325 MG TABLET PO PRN (06:17)
[2017-01-24] MEDS ORDERED: ALUMINUM/MAGNES/SIMETH MAX STR 30 ML UDCUP PO PRN (06:17)
[2017-01-24] MEDS ORDERED: POTASSIUM CHLORIDE 20 MEQ TABLET PO PRN (06:17)
--- NOTE | 2017-01-24 08:04 | XRay Report ---
XR chest 1V portable Indication: Post chest tube removal, look for pneumothorax Comparison: None Technique: Single frontal view of the chest Findings: Continued cardiomegaly status post sternotomy. Right-sided central line tip again projects over the right atrium. Interval progress bilateral lower lung atelectasis/consolidation and pleural fluid. No definite pneumothorax. Osseous and surrounding soft tissue structures appear grossly unchanged. IMPRESSION: As above. PROCEDURE INTERPRETED AT [facility] DEPARTMENT OF RADIOLOGY Final Report Signed by: Dr Klever Nieves
[2017-01-24] MEDS: INSULIN GLARGINE 100 UNIT/ML SUBCUT SCH (08:31)
[2017-01-24] MEDS: DILTIAZEM CD 240 MG CAPSULE PO SCH (08:32)
[2017-01-24] MEDS: FERROUS SULFATE 325 MG TABLET PO SCH (08:33)
[2017-01-24] MEDS: PANTOPRAZOLE 40 MG TABLET PO SCH (08:33)
[2017-01-24] MEDS: ASPIRIN EC 325 MG TABLET PO SCH (08:33)
[2017-01-24] MEDS: BUMETANIDE 1 MG TABLET PO SCH ×3 (08:33→16:38)
[2017-01-24] MEDS: DOCUSATE SODIUM 100 MG CAPSULE PO SCH (08:34)
[2017-01-24] MEDS: CHLORHEXIDINE 0.12% ORAL RINSE 60 ML BOTTLE SWISH/SPIT SCH ×3 (08:34→21:30)
[2017-01-24 08:59] LABS: Apearance,Urine CLEAR (Clear); Bacteria,Urine Occasional /HPF (Few); Bilirubin,Urine Negative (Negative); Blood, Urine Negative (Negative); Glucose,Urine (UA) Negative (Negative); Ketones,Urine Negative (Negative); Mucus,Urine Occasional /LPF (Occasional); Nitrite,Urine Negative (Negative); Protein,Urine Negative; RBC,Urine 1 /HPF (0-4); Squamous Epithelial Cell,Urine Occasional /HPF (0-10); Urine Color Straw (Yellow); Urine Specific Gravity 1.009 (1.001-1.035); Urine Urobilinogen < 2.0 EU/DL (0.2-1.0); WBC,Urine 3 /HPF (0-6)
[2017-01-24] MEDS ORDERED: DILTIAZEM CD 240 MG CAPSULE PO SCH (09:22)
[2017-01-24] MEDS ORDERED: FERROUS SULFATE 325 MG TABLET PO SCH (09:22)
[2017-01-24] MEDS: SODIUM CHLOR 0.45% KCL 20 MEQ 20 MEQ/1,000 ML BAG IV SCH ×2 (09:32→21:30)
[2017-01-24] MEDS: NITROGLYCERIN DRIP 50 MG/250 ML BOTTLE IV SCH (09:34)
[2017-01-24] MEDS: VANCOMYCIN INJ 1,000 MG in SODIUM CHLORIDE 0.9% 250 ML IV SCH (09:35)
[2017-01-24] MEDS: metFORMIN 500 MG TABLET PO SCH ×2 (09:41→16:38)
--- NOTE | 2017-01-24 11:25 | Pathology Report from [facility] ---
ACCESSION # : [id number] PATIENT NAME : Cecily Freitas ORDERING DR : LISET JOSEPH MD CLINICAL HX: Aortic stenosis POST-OP DX: Same SPECIMEN INFO: Aoritc valve tissue GROSS DESCRIPTION: The specimen is received in formalin labeled "CECILY SALDIVAR" consists of multiple fragments of markedly calcified valve tissue measuring 3.8 x 2.0 cm in aggregate. Husker Operator section submitted in one cassette following decalcification. DIAGNOSIS FOR CECILY FREITAS: Aortic valve leaflets with calcified vegetations c/w stenosis. SERVICE DATE: 01/21/2017 REPORT DATE: 01/24/2017 PATHOLOGIST: Jeffy Rock M.D. [facility]
--- NOTE | 2017-01-24 15:28 | Hospitalist Progress Note ---
Assessment and Plan (1) Status post aortic valve replacement Status: Acute Assessment and plan: Doing well postoperatively. Transfer to telemetry today per cardiothoracic surgery instructions. Current Visit: Yes (2) UTI (urinary tract infection) Status: Resolved Assessment and plan: Repeat urinalysis shows resolution of white cells and treat positive UTI. The patient did not receive antibiotics. Continue to monitor. Discussed with Dr. Reyna. Current Visit: Yes (3) DM2 (diabetes mellitus, type 2) Status: Chronic Assessment and plan: Continue sliding scale insulin and Accu-Cheks. Diabetic education notes reviewed. This morning's blood sugar was around 140 Current Visit: Yes Qualifiers: Diabetes mellitus complication status: with kidney complications Diabetes mellitus complication detail: with chronic kidney disease Chronic kidney disease stage: stage 3 (moderate) (4) CKD (chronic kidney disease) stage 3, GFR 30-59 ml/min Status: Chronic Current Visit: Yes Hospitalist: Subjective Interval history: Patient seen and examined. No acute events overnight. Case discussed with nursing staff. Labs reviewed. Seen and examined in the intensive care unit prior to transfer to telemetry. Patient has been doing well and offers no complaints. Repeat urinalysis shows resolution of prior urinary tract infection findings. The patient was not treated with antibiotics Exam - Constitutional Vitals: Period Temp Pulse Resp BP Sys/Link Pulse Ox Last 24 Hr 97.4 F-99.3 F 60-72 15-27 121-168/54-74 94-98 Exam: Constitutional System: No distress. No tremulousness. Head: Normocephalic, atraumatic. Ears, Nose and Throat System: No pain or tenderness. No epistaxis or discharge Eyes System: Pupils equal, round, and reactive. Extraocular muscles intact. Neck: Supple, without adenopathy, No jugular venous distention. No thyromegaly, neck mass, or prior surgery apparent. Respiratory System: Chest clear to auscultation. Cardiovascular System: Heart with regular rate and rhythm. GI System: Abdomen soft, nontender. Normo active bowel sounds present. Musculoskeletal System: limbs with no pedal edema. Full distal pulses. Neurological System: No discernable sensory deficit. No aphasia Psychiatric System: Conversation is rational Results - Labs CBC & BMP: 01/24/17 04:00 01/24/17 04:00 Lab Results: I have reviewed the past 24 hour labs - Diagnostic Findings Procedure: Chest x-ray: image reviewed by me, report reviewed by me Quality Measures - VTE Contraindication to Pharmacological VTE Prophylaxis: High Risk of Bleeding Specialty Discharge - Follow Up or Referrals
[2017-01-24] MEDS: CIPROFLOXACIN 750 MG TABLET PO SCH (21:29)
[2017-01-25 05:22] LABS: Eosinophils % 0.1 % (0.00-10.9); Hematocrit 29.2 VOL% (35.7-47.0); Hemoglobin 9.4 GM/DL (12.0-16.0); Immature Granulocytes % 1.2 %; Immature Granulocytes Absolute 0.13 #; Lymphocytes # 0.6 10*3/uL (1.4-4.0); Lymphocytes % 5.2 % (21.3-54.2); Mean Corpuscular HGB Conc 32.2 GM/DL (32-36); Mean Corpuscular Hemoglobin 29 PG (27-34); Mean Corpuscular Volume 90.1 FL (87-102); Mean Platelet Volume 11.5 FL (9.6-12.0); Monocytes # 0.7 10*3/uL (0.11-0.8); Monocytes % 5.9 % (1.7-12.7); Neutrophils # 9.6 10*3/uL (1.4-7.4); Neutrophils % 87.6 % (38.7-73.9); Platelet Count 128 T/CUMM (130-400); Red Blood Count 3.24 MC/CUMM (3.8-5.5); Red Cell Distribution Width 15.6 % (9.3-17.3)
[2017-01-25] MEDS: SODIUM CHLOR 0.45% KCL 20 MEQ 20 MEQ/1,000 ML BAG IV SCH (05:53)
[2017-01-25 05:59] LABS: Alanine Aminotransferase 48 U/L (13-56); Albumin 2.7 G/DL (3.4-5.0); Alkaline Phosphatase 75 U/L (45-117); Aspartate Amino Transferase 34 U/L (0-37); Bilirubin,Indirect 0.4 MG/DL (0.0-1.0); Blood Urea Nitrogen 38 MG/DL (7-18); Calcium 8.3 MG/DL (8.5-10.1); Glucose 249 MG/DL (74-106); Magnesium 1.8 MG/DL (1.8-2.4); Osmolality,Calculated 297.3 MOS/KG (273-304); Potassium 4.2 MMOL/L (3.5-5.1); Sodium 141 MMOL/L (136-145); Total Protein 5.6 G/DL (6.4-8.3)
[2017-01-25] MEDS: cloNIDine 0.1 MG TABLET PO SCH ×4 (05:59→23:20)
[2017-01-25] MEDS ORDERED: FUROSEMIDE 40 MG/4 ML VIAL IV ONE (06:00)
[2017-01-25 06:01] LABS: Troponin I Only 0.471 NG/ML (0.00-0.045)
--- NOTE | 2017-01-25 07:43 | XRay Report ---
XR chest 1V portable Indication: SOB Comparison: Chest x-ray dated January 24, 2017 Technique: Single frontal view of the chest Findings: Right-sided central venous catheter tip projects over the inferior right atrium. Continued cardiomegaly status post sternotomy/cardiac valve replacement. No significant change in bilateral mid and lower lung atelectasis/consolidation and bilateral pleural fluid. Osseous and surrounding soft tissue structures appear grossly unchanged. IMPRESSION: No significant interval change. PROCEDURE INTERPRETED AT [facility] DEPARTMENT OF RADIOLOGY Final Report Signed by: Dr Klever Nieves
[2017-01-25] MEDS ORDERED: DEXTROSE 50% 25 GM/50 ML VIAL IV PRN (07:44)
[2017-01-25] MEDS ORDERED: GLUCAGON 1 MG VIAL IM PRN (07:44)
[2017-01-25] MEDS: BUMETANIDE 1 MG TABLET PO SCH (08:22)
[2017-01-25] MEDS: CIPROFLOXACIN 750 MG TABLET PO SCH ×2 (08:22→21:49)
[2017-01-25] MEDS: CHLORHEXIDINE 0.12% ORAL RINSE 60 ML BOTTLE SWISH/SPIT SCH ×2 (08:23→21:50)
[2017-01-25] MEDS: FERROUS SULFATE 325 MG TABLET PO SCH (08:23)
[2017-01-25] MEDS: DOCUSATE SODIUM 100 MG CAPSULE PO SCH (08:23)
[2017-01-25] MEDS: DILTIAZEM CD 240 MG CAPSULE PO SCH (08:23)
[2017-01-25] MEDS: ASPIRIN EC 325 MG TABLET PO SCH (08:23)
[2017-01-25] MEDS: PANTOPRAZOLE 40 MG TABLET PO SCH (08:23)
[2017-01-25] MEDS: metFORMIN 500 MG TABLET PO SCH ×2 (08:23→16:31)
--- NOTE | 2017-01-25 09:02 | Cardiothoracic Progress Note ---
Cardiothoracic Subjective Interval history: Patient looks and feels okay. Vital signs are stable and she is breathing comfortably. She is gradually increasing her activity and is walking around in her room without assistance. Overall her progress is satisfactory and we will gradually increase her activity as tolerated. Exam (Progress Note) - Constitutional Vitals: Period Temp Pulse Resp BP Sys/Link Pulse Ox Last 24 Hr 97.4 F-98.7 F 62-72 16-18 124-164/52-76 94-98 Result/EKG - Labs CBC & BMP: 01/25/17 04:41 01/25/17 04:41 Labs: Laboratory Results - last 24 hr 01/24/17 01/24/17 01/24/17 12:07 15:58 20:04 WBC RBC Hgb Hct MCV MCH MCHC RDW Plt Count MPV Neut % (Auto) Lymph % (Auto) [place] % (Auto) Eos % (Auto) Baso % (Auto) Neut # (Auto) Lymph # (Auto) [place] # (Auto) Eos # (Auto) Baso # (Auto) Immature Gran % Nucleated RBC % Immature Gran # Nucleated RBCs # Sodium Potassium Chloride Carbon Dioxide Anion Gap BUN Creatinine GFR Calculation BUN/Creatinine Ratio Glucose POC Glucose 205 H 333 H 280 H Calculated Osmolality Calcium Magnesium Total Bilirubin Direct Bilirubin Indirect Bilirubin AST ALT Alkaline Phosphatase Total Creatine Kinase CK-MB (CK-2) Troponin I Total Protein Albumin Globulin Albumin/Globulin Ratio 01/24/17 01/25/17 01/25/17 23:57 04:41 04:41 WBC 11.0 RBC 3.24 L Hgb 9.4 L Hct 29.2 L MCV 90.1 MCH 29 MCHC 32.2 RDW 15.6 Plt Count 128 L D MPV 11.5 Neut % (Auto) 87.6 H Lymph % (Auto) 5.2 L [place] % (Auto) 5.9 Eos % (Auto) 0.1 Baso % (Auto) 0.0 Neut # (Auto) 9.6 H Lymph # (Auto) 0.6 L [place] # (Auto) 0.7 Eos # (Auto) 0.0 Baso # (Auto) 0.0 Immature Gran % 1.2 Nucleated RBC % 0.0 Immature Gran # 0.13 Nucleated RBCs # 0.00 Sodium 141 Potassium 4.2 Chloride 105 Carbon Dioxide 27 Anion Gap 13.2 BUN 38 H Creatinine 1.60 H GFR Calculation 37 BUN/Creatinine Ratio 23.00 H Glucose 249 H POC Glucose 274 H Calculated Osmolality 297.3 Calcium 8.3 L Magnesium 1.8 Total Bilirubin 0.60 Direct Bilirubin 0.20 Indirect Bilirubin 0.4 AST 34 ALT 48 Alkaline Phosphatase 75 Total Creatine Kinase 99 CK-MB (CK-2) < 1.0 Troponin I 0.471 H D Total Protein 5.6 L Albumin 2.7 L Globulin 2.9 Albumin/Globulin Ratio 0.9 L 01/25/17 01/25/17 05:07 07:20 WBC RBC Hgb Hct MCV MCH MCHC RDW Plt Count MPV Neut % (Auto) Lymph % (Auto) [place] % (Auto) Eos % (Auto) Baso % (Auto) Neut # (Auto) Lymph # (Auto) [place] # (Auto) Eos # (Auto) Baso # (Auto) Immature Gran % Nucleated RBC % Immature Gran # Nucleated RBCs # Sodium Potassium Chloride Carbon Dioxide Anion Gap BUN Creatinine GFR Calculation BUN/Creatinine Ratio Glucose POC Glucose 277 H 254 H Calculated Osmolality Calcium Magnesium Total Bilirubin Direct Bilirubin Indirect Bilirubin AST ALT Alkaline Phosphatase Total Creatine Kinase CK-MB (CK-2) Troponin I Total Protein Albumin Globulin Albumin/Globulin Ratio Quality Measures - VTE Contraindication to Pharmacological VTE Prophylaxis: High Risk of Bleeding Specialty Discharge - Follow Up or Referrals
[2017-01-25] MEDS: INSULIN LISPRO 100 UNIT/ML SUBCUT SCH ×3 (11:56→21:50)
--- NOTE | 2017-01-25 16:51 | Hospitalist Progress Note ---
Assessment and Plan (1) Status post aortic valve replacement Status: Acute Assessment and plan: Doing well postoperatively. Transferred to telemetry per cardiothoracic surgery instructions. Current Visit: Yes (2) UTI (urinary tract infection) Status: Resolved Assessment and plan: Repeat urinalysis shows resolution of white cells and treat positive UTI. The patient did not receive antibiotics. Continue to monitor. Discussed with Dr. Reyna. Current Visit: Yes (3) DM2 (diabetes mellitus, type 2) Status: Chronic Assessment and plan: Continue sliding scale insulin and Accu-Cheks. Diabetic education notes reviewed. The patient sliding scale insulin was left off her transfer orders. It was resumed this morning. Current Visit: Yes Qualifiers: Diabetes mellitus complication status: with kidney complications Diabetes mellitus complication detail: with chronic kidney disease Chronic kidney disease stage: stage 3 (moderate) (4) CKD (chronic kidney disease) stage 3, GFR 30-59 ml/min Status: Chronic Current Visit: Yes Hospitalist: Subjective Interval history: Patient seen and examined. No acute events overnight. Case discussed with nursing staff. Labs reviewed. She looks and feels good today. She is sitting in the chair in no distress and denies pain. A referral has been sent to [facility] for swing bed. Exam - Constitutional Vitals: Period Temp Pulse Resp BP Sys/Link Pulse Ox Last 24 Hr 97.0 F-98.4 F 62-72 16-20 115-164/52-76 95-98 Exam: Constitutional System: No distress. No tremulousness. Head: Normocephalic, atraumatic. Ears, Nose and Throat System: No pain or tenderness. No epistaxis or discharge Eyes System: Pupils equal, round, and reactive. Extraocular muscles intact. Neck: Supple, without adenopathy, No jugular venous distention. Respiratory System: Chest clear to auscultation. Cardiovascular System: Heart with regular rate and rhythm. GI System: Abdomen soft, nontender. Normo active bowel sounds present. Musculoskeletal System: limbs with no pedal edema. Full distal pulses. Neurological System: No discernable sensory deficit. No aphasia Psychiatric System: Conversation is rational Results - Labs CBC & BMP: 01/25/17 04:41 01/25/17 04:41 Lab Results: I have reviewed the past 24 hour labs Quality Measures - VTE Contraindication to Pharmacological VTE Prophylaxis: High Risk of Bleeding Specialty Discharge - Follow Up or Referrals
[2017-01-26 05:26] LABS: Basophils % 0.1 % (0.0-0.8); Eosinophils # 0.1 10*3/uL (0.0-0.87); Eosinophils % 0.8 % (0.00-10.9); Hematocrit 30.4 VOL% (35.7-47.0); Hemoglobin 9.9 GM/DL (12.0-16.0); Immature Granulocytes % 1.6 %; Immature Granulocytes Absolute 0.17 #; Lymphocytes # 0.8 10*3/uL (1.4-4.0); Lymphocytes % 7.6 % (21.3-54.2); Mean Corpuscular HGB Conc 32.6 GM/DL (32-36); Mean Corpuscular Hemoglobin 29 PG (27-34); Mean Corpuscular Volume 88.9 FL (87-102); Mean Platelet Volume 10.8 FL (9.6-12.0); Monocytes % 8.9 % (1.7-12.7); Neutrophils # 8.7 10*3/uL (1.4-7.4); Platelet Count 151 T/CUMM (130-400); Red Blood Count 3.42 MC/CUMM (3.8-5.5); Red Cell Distribution Width 15.1 % (9.3-17.3); White Blood Count 10.7 T/CUMM (4-12)
[2017-01-26 06:09] LABS: Alanine Aminotransferase 37 U/L (13-56); Albumin 2.9 G/DL (3.4-5.0); Alkaline Phosphatase 76 U/L (45-117); Aspartate Amino Transferase 21 U/L (0-37); Bilirubin,Indirect 0.8 MG/DL (0.0-1.0); Blood Urea Nitrogen 43 MG/DL (7-18); Calcium 8.7 MG/DL (8.5-10.1); Glucose 192 MG/DL (74-106); Magnesium 1.6 MG/DL (1.8-2.4); Osmolality,Calculated 296.3 MOS/KG (273-304); Potassium 4.2 MMOL/L (3.5-5.1); Sodium 141 MMOL/L (136-145)
[2017-01-26 06:12] LABS: Troponin I Only 0.337 NG/ML (0.00-0.045)
[2017-01-26] MEDS: cloNIDine 0.1 MG TABLET PO SCH ×3 (07:04→18:35)
--- NOTE | 2017-01-26 07:36 | XRay Report ---
XR chest 1V portable Indication: SOB Comparison: Chest x-ray dated January 25, 2017 Technique: Single frontal view of the chest Findings: Continued cardiomegaly status post sternotomy. Right-sided central venous catheter tip again projects over the inferior right atrium. Moderate left-sided pleural fluid with probable underlying atelectasis/consolidation appears grossly unchanged. Mildly progressed right lower lung atelectasis/consolidation and small right pleural fluid. Osseous and surrounding soft tissue structures appear grossly unchanged. IMPRESSION: As above. PROCEDURE INTERPRETED AT [facility] DEPARTMENT OF RADIOLOGY Final Report Signed by: Dr Klever Nieves
[2017-01-26] MEDS: INSULIN LISPRO 100 UNIT/ML SUBCUT SCH ×4 (08:07→21:02)
[2017-01-26] MEDS: metFORMIN 500 MG TABLET PO SCH ×2 (08:10→16:41)
--- NOTE | 2017-01-26 08:41 | Cardiothoracic Progress Note ---
Cardiothoracic Subjective Interval history: Patient is awake alert and responsive. Laboratory work and x-ray are all acceptable. Vital signs have been stable and she is breathing comfortably. She is walking unassisted and we will gradually increase her activity as tolerated. Overall her progress appears satisfactory. Exam (Progress Note) - Constitutional Vitals: Period Temp Pulse Resp BP Sys/Link Pulse Ox Last 24 Hr 96.7 F-98.8 F 67-81 16-20 115-156/62-75 92-98 Result/EKG - Labs CBC & BMP: 01/26/17 04:38 01/26/17 04:38 Labs: Laboratory Results - last 24 hr 01/25/17 01/25/17 01/25/17 11:31 16:27 21:20 WBC RBC Hgb Hct MCV MCH MCHC RDW Plt Count MPV Neut % (Auto) Lymph % (Auto) [place] % (Auto) Eos % (Auto) Baso % (Auto) Neut # (Auto) Lymph # (Auto) [place] # (Auto) Eos # (Auto) Baso # (Auto) Immature Gran % Nucleated RBC % Immature Gran # Nucleated RBCs # Sodium Potassium Chloride Carbon Dioxide Anion Gap BUN Creatinine GFR Calculation BUN/Creatinine Ratio Glucose POC Glucose 261 H 179 H 240 H Calculated Osmolality Calcium Magnesium Total Bilirubin Direct Bilirubin Indirect Bilirubin AST ALT Alkaline Phosphatase Total Creatine Kinase CK-MB (CK-2) Troponin I Total Protein Albumin Globulin Albumin/Globulin Ratio 01/26/17 01/26/17 01/26/17 04:38 04:38 07:35 WBC 10.7 RBC 3.42 L Hgb 9.9 L Hct 30.4 L MCV 88.9 MCH 29 MCHC 32.6 RDW 15.1 Plt Count 151 MPV 10.8 Neut % (Auto) 81.0 H Lymph % (Auto) 7.6 L [place] % (Auto) 8.9 Eos % (Auto) 0.8 Baso % (Auto) 0.1 Neut # (Auto) 8.7 H Lymph # (Auto) 0.8 L [place] # (Auto) 1.0 H Eos # (Auto) 0.1 Baso # (Auto) 0.0 Immature Gran % 1.6 Nucleated RBC % 0.0 Immature Gran # 0.17 Nucleated RBCs # 0.00 Sodium 141 Potassium 4.2 Chloride 102 Carbon Dioxide 29 Anion Gap 14.2 BUN 43 H Creatinine 1.80 H GFR Calculation 32 BUN/Creatinine Ratio 23.00 H Glucose 192 H POC Glucose 190 H Calculated Osmolality 296.3 Calcium 8.7 Magnesium 1.6 L Total Bilirubin 1.00 Direct Bilirubin 0.20 Indirect Bilirubin 0.8 AST 21 ALT 37 Alkaline Phosphatase 76 Total Creatine Kinase 77 D CK-MB (CK-2) < 1.0 Troponin I 0.337 H D Total Protein 6.0 L Albumin 2.9 L Globulin 3.1 Albumin/Globulin Ratio 0.9 L Quality Measures - VTE Contraindication to Pharmacological VTE Prophylaxis: High Risk of Bleeding Specialty Discharge - Follow Up or Referrals
[2017-01-26] MEDS: BUMETANIDE 1 MG TABLET PO SCH (09:19)
[2017-01-26] MEDS: FERROUS SULFATE 325 MG TABLET PO SCH (09:20)
[2017-01-26] MEDS: DILTIAZEM CD 240 MG CAPSULE PO SCH (09:20)
[2017-01-26] MEDS: PANTOPRAZOLE 40 MG TABLET PO SCH (09:20)
[2017-01-26] MEDS: ASPIRIN EC 325 MG TABLET PO SCH (09:22)
[2017-01-26] MEDS: DOCUSATE SODIUM 100 MG CAPSULE PO SCH (09:22)
[2017-01-26] MEDS: CIPROFLOXACIN 750 MG TABLET PO SCH (09:22)
[2017-01-26] MEDS: CHLORHEXIDINE 0.12% ORAL RINSE 60 ML BOTTLE SWISH/SPIT SCH ×2 (09:25→21:03)
--- NOTE | 2017-01-26 18:37 | Hospitalist Progress Note ---
Assessment and Plan (1) Status post aortic valve replacement Status: Acute Assessment and plan: Doing well postoperatively. Transferred to telemetry per cardiothoracic surgery instructions. Current Visit: Yes (2) UTI (urinary tract infection) Status: Resolved Assessment and plan: Repeat urinalysis shows resolution of white cells and treat positive UTI. The patient did not receive antibiotics. Continue to monitor. Discussed with Dr. Reyna. Current Visit: Yes (3) DM2 (diabetes mellitus, type 2) Status: Chronic Assessment and plan: Continue sliding scale insulin and Accu-Cheks. Diabetic education notes reviewed. The patient sliding scale insulin was left off her transfer orders. It was resumed this morning. Current Visit: Yes Qualifiers: Diabetes mellitus complication status: with kidney complications Diabetes mellitus complication detail: with chronic kidney disease Chronic kidney disease stage: stage 3 (moderate) (4) CKD (chronic kidney disease) stage 3, GFR 30-59 ml/min Status: Chronic Current Visit: Yes Hospitalist: Subjective Interval history: Patient seen and examined. No acute events overnight. Case discussed with nursing staff. Labs reviewed. Exam - Constitutional Vitals: Period Temp Pulse Resp BP Sys/Link Pulse Ox Last 24 Hr 96.4 F-99.3 F 71-98 16-20 128-156/60-75 92-98 Exam: Constitutional System: No distress. No tremulousness. Head: Normocephalic, atraumatic. Ears, Nose and Throat System: No pain or tenderness. No epistaxis or discharge Eyes System: Pupils equal, round, and reactive. Extraocular muscles intact. Neck: Supple, without adenopathy, No jugular venous distention. Respiratory System: Chest clear to auscultation. Cardiovascular System: Heart with regular rate and rhythm. GI System: Abdomen soft, nontender. Normo active bowel sounds present. Musculoskeletal System: limbs with no pedal edema. Full distal pulses. Neurological System: No discernable sensory deficit. No aphasia Psychiatric System: Conversation is rational Results - Labs CBC & BMP: 01/26/17 04:38 01/26/17 04:38 Lab Results: I have reviewed the past 24 hour labs Quality Measures - VTE Contraindication to Pharmacological VTE Prophylaxis: High Risk of Bleeding Specialty Discharge - Follow Up or Referrals
[2017-01-26] MEDS: CIPROFLOXACIN 500 MG TABLET PO SCH (21:02)
[2017-01-27] MEDS: cloNIDine 0.1 MG TABLET PO SCH ×4 (00:19→17:59)
[2017-01-27] MEDS: metFORMIN 500 MG TABLET PO SCH ×2 (08:16→17:10)
[2017-01-27] MEDS: INSULIN LISPRO 100 UNIT/ML SUBCUT SCH ×4 (08:16→20:24)
--- NOTE | 2017-01-27 08:23 | Cardiothoracic Progress Note ---
Cardiothoracic Subjective Interval history: Patient is having no real problems. Vital signs are stable and she is breathing comfortably. She is walking unassisted. I think she can be transferred to [facility] bed and [place] tomorrow. Exam (Progress Note) - Constitutional Vitals: Period Temp Pulse Resp BP Sys/Link Pulse Ox Last 24 Hr 96.4 F-99.3 F 73-98 14-92 123-150/56-72 94-98 Result/EKG - Labs CBC & BMP: 01/26/17 04:38 01/26/17 04:38 Labs: Laboratory Results - last 24 hr 01/26/17 01/26/17 01/26/17 07:35 11:03 16:10 POC Glucose 190 H 207 H 134 H 01/26/17 01/27/17 20:49 07:26 POC Glucose 214 H 253 H Quality Measures - VTE Contraindication to Pharmacological VTE Prophylaxis: High Risk of Bleeding Specialty Discharge - Follow Up or Referrals
[2017-01-27] MEDS: FERROUS SULFATE 325 MG TABLET PO SCH (08:52)
[2017-01-27] MEDS: PANTOPRAZOLE 40 MG TABLET PO SCH (08:53)
[2017-01-27] MEDS: DILTIAZEM CD 240 MG CAPSULE PO SCH (08:53)
[2017-01-27] MEDS: DOCUSATE SODIUM 100 MG CAPSULE PO SCH (08:53)
[2017-01-27] MEDS: ASPIRIN EC 325 MG TABLET PO SCH (08:55)
[2017-01-27] MEDS: CIPROFLOXACIN 500 MG TABLET PO SCH ×2 (08:55→20:24)
[2017-01-27] MEDS: BUMETANIDE 1 MG TABLET PO SCH (08:56)
[2017-01-27] MEDS: CHLORHEXIDINE 0.12% ORAL RINSE 60 ML BOTTLE SWISH/SPIT SCH ×2 (10:18→20:24)
[2017-01-28] MEDS: cloNIDine 0.1 MG TABLET PO SCH ×3 (00:13→12:36)
--- NOTE | 2017-01-28 09:01 | Discharge Summary ---
Hospital Course - Hospital Course Hospital Course: History of present illness: Patient is an 86-year-old lady who presented to [facility] with symptoms of increasing shortness of breath. Workup including echocardiogram and cardiac catheterization demonstrated critical aortic stenosis the patient was referred for aortic valve replacement. Past medical history is significant for history of hypertension hyperlipidemia and diabetes mellitus. She has however been in surprisingly good health given her age. Past medical history review of systems social history and family history are documented in her previous notes. Hospital course: Patient was taken to surgery and a severely calcified aortic valve was removed and replaced with a 19 mm pericardial prosthesis. Patient's postoperative course was entirely uncomplicated and she was discharged to swing bed care on the seventh postoperative day. Her discharge medications are listed below and she has instructions to return for follow-up in 1 month. Specialty Discharge - Follow Up or Referrals Follow up with: Jon Reyna MD [Physician] - 1 Month Discharge Plan - Discharge Data Disposition: Swing Bed, [facility], [facility] Condition at Discharge: Stable Discharge Diet: advance to your usual diet Activity: resume usual activities as tolerated Weight Bearing at Discharge: full weight bearing Driving: not until seen by doctor - Discharge Medications New Dextrose 50% [D50] 25 gm IV PRN PRN #0 vial PRN Reason: Hypoglycemia with IV access Dextrose 50% [D50] 25 gm IV PRN PRN #0 vial PRN Reason: Hypoglycemia with IV access Diltiazem Cd Cap [Cardizem CD] 240 mg PO DAILY capsule Docusate Sodium Cap [Colace Cap] 100 mg PO DAILY capsule Ferrous Sulfate Tab [Feosol Original Tab] 325 mg PO DAILY tablet cloNIDine TAB [Catapres Tab] 0.1 mg PO Q6HR #120 tablet Ciprofloxacin Tab [Cipro Tab] 500 mg PO BID #14 tablet Dextrose 50% [D50] 25 gm IV PRN PRN #0 vial PRN Reason: Hypoglycemia with IV access oxyCODONE/ACETAMINOPHEN 5-325 [Percocet 5-325] 1 tablet PO Q4H PRN #0 tablet PRN Reason: Pain Mild (1-3) Continue Ferrous Sulfate 1 tablet PO DAILY dilTIAZem HCl [Cartia XT] 240 mg PO DAILY Bumetanide 2 mg PO DAILY Atorvastatin [Lipitor] 20 mg PO DAILY metFORMIN [Glucophage] 500 mg PO BID W/MEALS - Follow Up or Referral - Forms/Instructions Instructions: Heart Healthy Diet (GEN), Coronary Artery Bypass Graft, Alumina Refinery Operator (GEN), Sternal Precautions (GEN) Exam - Constitutional Vitals: Period Temp Pulse Resp BP Sys/Link Pulse Ox Last 24 Hr 97.1 F-98.7 F 80-83 18-20 109-134/44-71 92-100 Discharge Results Procedures and tests throughout hospitalization: Pending Orders 01/20/17 04:51 Fresh Frozen Plasma IN AM Red Blood Cells Leuko Red IN AM Single Donor Platelets IN AM Type and Screen Routine 01/21/17 Red Blood Cells Leuko Red Routine Labs on day of discharge: Labs from last 24 hours 01/28/17 01/27/17 01/27/17 07:43 19:20 16:41 POC Glucose 200 H 173 H 89 01/27/17 11:16 POC Glucose 176 H DS: Provider Date of admission: 01/19/17 17:02 Primary care physician: . No PCP Attending physician on admission: Jon Reyna MD Consults: 01/19/17 09:42 Consult to Dietitian [CONS] Routine Reason for Dietitian: Other Consult Comment: low salt, low cholesterol, diet 01/24/17 06:17 Consult to Physical Therapy [CONS] Routine Reason for Physical Therapy: Other Consult Comment: CV Rehab 01/24/17 06:18 Consult to Cardiac Rehabilitation [CONS] Routine Reason for Cardiac Rehabilitation: Other Consult Comment: Post CABG/heart surgery Consult to [facility], Educator [CONS] Routine Reason for Shake Maker: Diabetes Education Initial Insulin Education Consult Comment: insulin education Consult to Dietitian [CONS] Routine Reason for Dietitian: Dietary Consult Consult Comment: Cardiac, low salt, low cholesterol diet Consult to Physician [CONS] Routine Comment: Management of diabetes Consulting Provider: Consult to Specialist Group: Hospitalist Discharging clinician: Jon Reyna MD Expected date of discharge: 01/28/17
[2017-01-28] MEDS: DILTIAZEM CD 240 MG CAPSULE PO SCH (10:28)
[2017-01-28] MEDS: DOCUSATE SODIUM 100 MG CAPSULE PO SCH (10:29)
[2017-01-28] MEDS: metFORMIN 500 MG TABLET PO SCH (10:29)
[2017-01-28] MEDS: BUMETANIDE 1 MG TABLET PO SCH (10:29)
[2017-01-28] MEDS: ASPIRIN EC 325 MG TABLET PO SCH (10:29)
[2017-01-28] MEDS: CIPROFLOXACIN 500 MG TABLET PO SCH (10:30)
[2017-01-28] MEDS: CHLORHEXIDINE 0.12% ORAL RINSE 60 ML BOTTLE SWISH/SPIT SCH (10:30)
[2017-01-28] MEDS: PANTOPRAZOLE 40 MG TABLET PO SCH (10:30)
[2017-01-28] MEDS: INSULIN LISPRO 100 UNIT/ML SUBCUT SCH ×2 (10:32→12:36)
[2017-01-28] MEDS: FERROUS SULFATE 325 MG TABLET PO SCH (10:34)
[2017-01-28 16:35] VITALS: BP 120/55
== END 2017-01-28 15:52 | disposition swing bed (61) | DRG 220 ==
LOC: N.TELES 01-19 17:02 → N.CVR 01-21 10:23 → N.ICU 01-22 14:59 → N.TELES 01-24 09:24 → UNDODISIN 01-26 17:57